=== PATIENT | female | born 1995 | race Hispanic/Latino ===

== ENCOUNTER 2020-05-28 21:30 | Emergency (ER) | payer OTHER, SELFPAY ==
--- OUTSIDE RECORDS SUMMARY | 2020-05-28 21:34 | XMS REPORT | Continuity of Care Document ---
:1995 Author Organization [facility] t Address [address] [place] [address] Dr. Victor [address] [place] [id number] Care Team Providers Name Role Phone Unavailable Unavailable Unavailable Problems This patient has no known problems. Allergies, Adverse Reactions, Alerts This patient has no known allergies or adverse reactions. Medications This patient has no known medications. Procedures This patient has no known procedures. Results This patient has no known results.
[2020-05-28 22:31] LABS: Urine Blood NEGATIVE (NEG); Urine Glucose NEGATIVE (NEG); Urine Protein 1+ (NEG); Urine Specific Gravity 1.025 (1.005-1.030); Urine pH 6.5 (5.0-7.0)
[2020-05-28 22:47] LABS: Absolute Lymphocytes (CBC) 2.9 K/uL (0.7-4.9); Basophils % 0.3 % (0-1.3); Hematocrit 37.3 % (36.0-45.0); MPV 10.6 fL (7.6-11.3); RBC Red Blood Cell Count 4.04 M/uL (3.86-4.86)
[2020-05-28] MEDS ORDERED: ONDANSETRON 4 MG/2 ML VIAL ONE (23:06)
[2020-05-28] MEDS ORDERED: NA CHLORIDE 0.9% 1,000 ML ONE (23:06)
[2020-05-28 23:55] LABS: BUN Blood Urea Nitrogen 16 mg/dL (7-18); Bicarbonate 22 mmol/L (21-32); Glucose Level 84 mg/dL (74-106); HCG, Quantitative 59758 mIU/mL (1-3); Potassium 3.1 mmol/L (3.5-5.1); Sodium Level 140 mmol/L (136-145)
--- NOTE | 2020-05-29 00:24 | ER ---
Nurse's Notes [facility] Name: Susanna Bowman Age: 25 yrs Sex: Female : 1995 Arrival Date: 05/28/2020 Time: 21:33 Bed 20 Private MD: Diagnosis: related conditions, unspecified, first trimester;Vomiting;Vomiting of , unspecified;Constipation;Hypokalemia Presentation: 05/28 21:45 Chief complaint: Patient states: N/V and pelvic pain for 3 days, reports being 3.5 em months , denies vaginal bleeding or fever. Coronavirus screen: Client denies travel out of the [place] in the last 14 days. Ebola Screen: Patient negative for fever greater than or equal to 101.5 degrees Fahrenheit, and additional compatible Ebola Virus Disease symptoms Patient denies exposure to infectious person. Patient denies travel to an Ebola-affected area in the 21 days before illness onset. No symptoms or risks identified at this time. Initial Sepsis Screen: Does the patient meet any 2 criteria? No. Patient's initial sepsis screen is negative. Does the patient have a suspected source of infection? No. Patient's initial sepsis screen is negative. Risk Assessment: Do you want to hurt yourself or someone else? Patient reports no desire to harm self or others. Onset of symptoms was May 28, 2020. 21:45 Method Of Arrival: Ambulatory em 21:45 Acuity: LITA 3 em Triage Assessment: 22:41 General: Appears in no apparent distress. Behavior is calm, cooperative, appropriate ll2 for age. Pain: Denies pain. GI: Reports nausea. 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 - Social history:: Smoking status: Patient denies any tobacco usage or history of. Screenin:39 Abuse screen: Denies threats or abuse. Nutritional screening: No deficits noted. ll2 Tuberculosis screening: No symptoms or risk factors identified. Assessment: 22:42 General: Appears in no apparent distress. Behavior is calm, cooperative, appropriate ll2 for age. Pain: Denies pain. Neuro: Level of Consciousness is awake, alert, obeys commands, Oriented to person, place, time, situation. Cardiovascular: Patient's skin is warm and dry. Respiratory: Airway is patent Respiratory effort is even, unlabored, Respiratory pattern is regular, symmetrical. GI: Abdomen is round. : No signs and/or symptoms were reported regarding the genitourinary system. EENT: No signs and/or symptoms were reported regarding the EENT system. Derm: Skin is intact, is healthy with good turgor, Skin is dry, Skin is pink, warm \T\ dry. Musculoskeletal: Circulation, motion, and sensation intact. Range of motion: intact in all extremities. 23:30 Reassessment: FHT 167 notified ECP. zb 23:51 Reassessment: Patient and/or family updated on plan of care and expected duration. Pain ll2 level reassessed. Patient is alert, oriented x 3, equal unlabored respirations, skin warm/dry/pink. 05/29 00:57 Reassessment: Patient and/or family updated on plan of care and expected duration. Pain ll2 level reassessed. Patient is alert, oriented x 3, equal unlabored respirations, skin warm/dry/pink. Vital Signs: 05/28 21:45 BP 113 / 55; Pulse 78; Resp 18; Temp 98.4; Pulse Ox 100% on R/A; Weight 61.23 kg; em Height 5 ft. 0 in. (152.40 cm); Pain 4/10; 22:00 BP 103 / 75; Pulse 88; Resp 18; Pulse Ox 99% on R/A; ll2 23:00 BP 103 / 65; Pulse 77; Resp 18; Pulse Ox 99% on R/A; ll2 05/29 00:00 BP 104 / 72; Pulse 71; Resp 16; Pulse Ox 100% on R/A; ll2 05/28 21:45 Body Mass Index 26.37 (61.23 kg, 152.40 cm) em ED Course: 05/28 21:33 Patient arrived in ED. cf2 21:47 Triage completed. em 21:48 Arm band placed on. em 21:56 Pk Last MD is Attending Physician. [facility] 21:59 Urine collected: clean catch specimen, clear. em 22:37 Linscombe, Luzma, RN is Primary Nurse. ll2 22:39 Initial lab(s) drawn, by ma, sent to lab. Inserted saline lock: 20 gauge in right ll2 antecubital area, using aseptic technique. Blood collected. 22:40 Patient has correct armband on for positive identification. Placed in gown. Bed in low ll2 position. Call light in reach. Side rails up X 1. Pulse ox on. NIBP on. 23:51 Urine Dipstick--Ancillary (enter results) Sent. [facility] 05/29 00:24 Dharmesh Castillo MD is Referral Physician. [facility] 01:02 No provider procedures requiring assistance completed. IV discontinued, intact, ll2 bleeding controlled, No redness/swelling at site. Pressure dressing applied. Administered Medications: 05/28 22:37 Drug: NS 0.9% 1000 ml Route: IV; Rate: 1 bolus; Site: right antecubital; [facility] 05/29 00:00 Follow up: IV Status: Completed infusion; IV Intake: 1000ml 05/28 22:37 Drug: Zofran (Ondansetron) 4 mg Route: IVP; Site: right antecubital; [facility] 05/29 00:01 Follow up: Response: No adverse reaction 00:25 Drug: Potassium Effervescent Tablet 25 mEq Route: PO; 2 Intake: 00:00 IV: 1000ml; Total: 1000ml. sf Outcome: 00:24 Discharge ordered by . [facility] 01:01 Patient left the ED. 2 01:02 Discharged to home ambulatory. 2 01:02 Condition: stable 01:02 Discharge instructions given to patient, Instructed on discharge instructions, follow up and referral plans. medication usage, Demonstrated understanding of instructions, follow-up care, medications, Prescriptions given X 4. Signatures: Pk Last MD MD cha Munoz, Edgar, RN RN Augie Bledsoe 2 Luzma Adam, RN RN ll2 Sylwia Ureña RN RN zb Fitzpatrick, Steven, RN RN sf
--- NOTE | 2020-05-29 00:24 | EDPHYS ---
Physician Documentation [facility] Name: Susanna Bowman Age: 25 yrs Sex: Female : 1995 Arrival Date: 05/28/2020 Time: 21:33 Bed 20 Private MD: ED Physician Pk Last HPI: 05/28 22:16 This 25 yrs old Female presents to ER via Ambulatory with complaints of jarrod PREGANT 3 MONTHS, Nausea/Vomiting, Abdominal Cramping, Constipation. 22:16 The patient presents to the emergency department with nausea, vomiting, that is jarrod intermittent. Onset: The symptoms/episode began/occurred 3 day(s) ago. Possible causes: . The symptoms are aggravated by nothing. Associated signs and symptoms: The patient has no apparent associated signs or symptoms. The patient has not experienced similar symptoms in the past. 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 - Social history:: Smoking status: Patient denies any tobacco usage or history of. ROS: 22:17 Constitutional: Negative for fever, chills, and weight loss, Eyes: Negative for injury, jarrod pain, redness, and discharge, ENT: Negative for injury, pain, and discharge, Neck: Negative for injury, pain, and swelling, Cardiovascular: Negative for chest pain, palpitations, and edema, Respiratory: Negative for shortness of breath, cough, wheezing, and pleuritic chest pain, Back: Negative for injury and pain, : Negative for injury, bleeding, discharge, and swelling, MS/Extremity: Negative for injury and deformity, Skin: Negative for injury, rash, and discoloration, Neuro: Negative for headache, weakness, numbness, tingling, and seizure, Psych: Negative for depression, anxiety, suicide ideation, homicidal ideation, and hallucinations, Allergy/Immunology: Negative for hives, rash, and allergies, Endocrine: Negative for neck swelling, polydipsia, polyuria, polyphagia, and marked weight changes, Hematologic/Lymphatic: Negative for swollen nodes, abnormal bleeding, and unusual bruising. 22:17 Abdomen/GI: Positive for abdominal pain, nausea and vomiting. Exam: 22:17 Constitutional: This is a well developed, well nourished patient who is awake, alert, jarrod and in no acute distress. Head/Face: Normocephalic, atraumatic. Eyes: Pupils equal round and reactive to light, extra-ocular motions intact. Lids and lashes normal. Conjunctiva and sclera are non-icteric and not injected. Cornea within normal limits. Periorbital areas with no swelling, redness, or edema. ENT: Nares patent. No nasal discharge, no septal abnormalities noted. Tympanic membranes are normal and external auditory canals are clear. Oropharynx with no redness, swelling, or masses, exudates, or evidence of obstruction, uvula midline. Mucous membranes moist. Neck: Trachea midline, no thyromegaly or masses palpated, and no cervical lymphadenopathy. Supple, full range of motion without nuchal rigidity, or vertebral point tenderness. No Meningismus. Chest/axilla: Normal chest wall appearance and motion. Nontender with no deformity. No lesions are appreciated. Cardiovascular: Regular rate and rhythm with a normal S1 and S2. No gallops, murmurs, or rubs. Normal PMI, no JVD. No pulse deficits. Respiratory: Lungs have equal breath sounds bilaterally, clear to auscultation and percussion. No rales, rhonchi or wheezes noted. No increased work of breathing, no retractions or nasal flaring. Back: No spinal tenderness. No costovertebral tenderness. Full range of motion. Skin: Warm, dry with normal turgor. Normal color with no rashes, no lesions, and no evidence of cellulitis. MS/ Extremity: Pulses equal, no cyanosis. Neurovascular intact. Full, normal range of motion. Neuro: Awake and alert, GCS 15, oriented to person, place, time, and situation. Cranial nerves II-XII grossly intact. Motor strength 5/5 in all extremities. Sensory grossly intact. Cerebellar exam normal. Normal gait. Psych: Awake, alert, with orientation to person, place and time. Behavior, mood, and affect are within normal limits. 22:17 Abdomen/GI: Inspection: distension, Bowel sounds: normal, Liver: no appreciated palpable abnormalities, Hernia: not appreciated. Vital Signs: 21:45 BP 113 / 55; Pulse 78; Resp 18; Temp 98.4; Pulse Ox 100% on R/A; Weight 61.23 kg; em Height 5 ft. 0 in. (152.40 cm); Pain 4/10; 22:00 BP 103 / 75; Pulse 88; Resp 18; Pulse Ox 99% on R/A; ll2 23:00 BP 103 / 65; Pulse 77; Resp 18; Pulse Ox 99% on R/A; ll2 05/29 00:00 BP 104 / 72; Pulse 71; Resp 16; Pulse Ox 100% on R/A; ll2 05/28 21:45 Body Mass Index 26.37 (61.23 kg, 152.40 cm) em MDM: 05/28 21:57 Patient medically screened. jarrod 22:19 Differential diagnosis: Nonspecific abd pain, viral gastroenteritis, gastroenteritis. [facility] Data reviewed: vital signs, nurses notes, lab test result(s). 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 Counseling: I had a detailed discussion with the patient and/or guardian regarding: the historical points, exam findings, and any diagnostic results supporting the discharge/admit diagnosis, the need for outpatient follow up, for definitive care, an OB/Gyne specialist. 05/28 21:58 Order name: Quantitative Hcg; Complete Time: 00:20 [facility] 05/28 21:58 Order name: Abo/rh Typing [facility] 05/28 21:58 Order name: Basic Metabolic Panel; Complete Time: 00:20 jarrod 05/28 21:58 Order name: CBC with Diff; Complete Time: 23:16 [facility] 05/28 22:01 Order name: Urine Dipstick--Ancillary (enter results) 05/28 22:01 Order name: Urine --Ancillary (enter results); Complete Time: 23:16 em 05/28 21:58 Order name: Urine Test (obtain specimen); Complete Time: 21:59 [facility] 05/28 21:58 Order name: IV Saline Lock; Complete Time: 22:38 [facility] 05/28 21:58 Order name: Labs collected and sent; Complete Time: 22:38 jarrod 05/28 21:58 Order name: NPO; Complete Time: 22:38 [facility] 05/28 22:02 Order name: Urine Dipstick-Ancillary; Complete Time: 23:16 [facility] 05/28 21:58 Order name: Urine Dipstick-Ancillary (obtain specimen); Complete Time: 21:59 [facility] 05/28 21:58 Order name: FHT's; Complete Time: 23:51 [facility] 05/29 00:22 Order name: FHT's: s/p 1 liter bolus; Complete Time: 00:56 [facility] Administered Medications: 22:37 Drug: NS 0.9% 1000 ml Route: IV; Rate: 1 bolus; Site: right antecubital; ll2 05/29 00:00 Follow up: IV Status: Completed infusion; IV Intake: 1000ml 05/28 22:37 Drug: Zofran (Ondansetron) 4 mg Route: IVP; Site: right antecubital; 2 05/29 00:01 Follow up: Response: No adverse reaction 00:25 Drug: Potassium Effervescent Tablet 25 mEq Route: PO; ll2 Disposition: 05/29/20 00:24 Discharged to Home. Impression: related conditions, unspecified, first trimester, Vomiting, Vomiting of , unspecified, Constipation, Hypokalemia. - Condition is Stable. - Discharge Instructions: Constipation, Adult, Hyperemesis Gravidarum, First Trimester of , [id number]-Wduz, First Trimester of , Pelvic Rest. - Prescriptions for Diclegis 10- 10 mg Oral tablet,delayed release (DR/EC) - take 1 tablet by ORAL route 3 times per day and 2 tablets at bedtime; 60 tablet. Vitamin 27- 0.8 mg Oral Tablet - take 1 tablet by ORAL route once daily; 30 tablet. Zofran 4 mg Oral Tablet - take 1 tablet by ORAL route every 12 hours As needed; 30 tablet. Miralax 17 gram/dose Oral - take 1 packet by ORAL route once daily dilute powder in 8 ounces of water or juice; 14 packet. - Medication Reconciliation Form, Thank You Letter, Antibiotic Education, Prescription Opioid Use form. - Follow up: Private Physician; When: 2 - 3 days; Reason: Recheck today's complaints, Continuance of care, Re-evaluation by your physician. Follow up: Dharmesh Castillo; When: 2 - 3 days; Reason: Recheck today's complaints, Re-evaluation by your physician. - Problem is new. - Symptoms have improved. Signatures: Dispatcher [employer] EDPk Joy MD MD cha Munoz, Edgar, RN RN em Luzma Adam RN RN ll2 Kofi Jorge RN sf Corrections: (The following items were deleted from the chart) 01:01 00:24 05/29/2020 00:24 Discharged to Home. Impression: related conditions, ll2 unspecified, first trimester; Vomiting; Vomiting of , unspecified; Constipation; Hypokalemia. Condition is Stable. Discharge Instructions: Hyperemesis Gravidarum, First Trimester of , [id number]-[id number], First Trimester of , Pelvic Rest, Constipation, Adult. Prescriptions for Diclegis 10-10 mg Oral tablet,delayed release (DR/EC) - take 1 tablet by ORAL route 3 times per day and 2 tablets at bedtime; 60 tablet, Vitamin 27-0.8 mg Oral Tablet - take 1 tablet by ORAL route once daily; 30 tablet, Zofran 4 mg Oral Tablet - take 1 tablet by ORAL route every 12 hours As needed; 30 tablet, Miralax 17 gram/dose Oral - take 1 packet by ORAL route once daily dilute powder in 8 ounces of water or juice; 14 packet. and Forms are Medication Reconciliation Form, Thank You Letter, Antibiotic Education, Prescription Opioid Use. Follow up: Private Physician; When: 2 - 3 days; Reason: Recheck today's complaints, Continuance of care, Re-evaluation by your physician. Follow up: Dharmesh Castillo; When: 2 - 3 days; Reason: Recheck today's complaints, Re-evaluation by your physician. Problem is new. Symptoms have improved. jarrod
[2020-05-29] MEDS ORDERED: POTASSIUM 25 MEQ EFFERV TAB ONE (01:10)
[2020-05-29 04:18] VITALS: TEMP 98.4
[2020-05-29 04:22] VITALS: BP 104/72; O2SAT 100
== END 2020-05-29 01:01 | disposition home or self-care (01) ==
LOC: ER 21:30
DX: O99.281 Endocrine, nutritional and metabolic diseases complicating pregnancy, first trimester (principal); E87.6 Hypokalemia; K59.00 Constipation, unspecified; Z3A.12 12 weeks gestation of pregnancy; Z88.0 Allergy status to penicillin; Z88.8 Allergy status to other drugs, medicaments and biological substances
CPT/HCPCS: 36415; 80048; 81003; 81025; 84702; 85025; 86900; 86901; 96361; 96374; 99284; J2405; J7030

== ENCOUNTER 2023-06-02 07:01 | Observation (INO) | payer BC ==
--- OUTSIDE RECORDS SUMMARY | 2023-06-02 07:04 | XMS REPORT | Continuity of Care Document ---
Author Name Unknown Address [address] [facility]. [address] [place] [address] [facility] thconnect Address [address] [facility] [address] [place] [address] Care Team Providers Care Supervisor Cook Room Name Role Phone Clyde Ardon Primary Care Physician Estrella Leal Attending Clinician U navailable GC_GCBZW_Kadiyala_S Attending Clinician Unavaila thais Doctor Unassigned, [place] Attending Clinician U navailable Missy HAN Attending Clinician Unavailable Missy Scott Attending Clinician [phone] Dev Mina MD Attending Clinician [phone] DEV MINA Attending Clinician Unavailable Gilbert Meehan Attending Clinician Unava ilNEIDA Ayoub Attending Clinician Unavailable Estrella Leal Admitting Clinician U navailable GLENN_GCBZW_Kadiyala_S Admitting Clinician UnavailGilbert Gomez Admitting Clinician Alice ilhugo Payers Payer Name Policy Type Policy Number Effective Date Expirati on Date Source [place]: [facility] [id number] 2022 00:00:00 Problems Condition Name Condition Details Condition Category Status Onset Date Resolution Date Last Treatment Date Treating Clinician Comments Source Depression Depression Disease Active 4-13 00:00: 00 [facility] Allergies, Adverse Reactions, Alerts Allergy Name Allergy Type Status Severity Reaction(s) Onset Date Inactive Date Treating Clinician Comments Source Penicill ins DA Active AL 2020-03 0-05 00:00: 00 [facility] Penicill ins DA Active AL HIVES 2020-03 0-05 00:00: 00 [facility] Penicill ins DA Active AL 9-08 00:00: 00 [facility] fospheny toin DA Active AL 9-08 00:00: 00 [facility] Penicill ins DA Active AL HIVES 9-08 00:00: 00 [facility] fospheny toin DA Active AL ITCHING 9-08 00:00: 00 [facility] Penicill ins DA Active AL HIVES 8-24 00:00: 00 [facility] fospheny toin DA Active AL ITCHING 8-24 00:00: 00 [facility] Penicill ins DA Active AL 0 8-24 00:00: 00 [facility] fospheny toin DA Active AL 0 8-24 00:00: 00 [facility] Fospheny toin Propensi ty to adverse reaction s Active Hives 0 2-07 00:00: 00 [facility] Penicill ins Propensi ty to adverse reaction s Active Rash 05-05 00:00: 00 [facility] FOSPHENY TOIN DRUG INGREDI Active Hives 0 2- 00:00: 00 [facility] PENICILL INS Drug Class Active Rash 05-05 00:00: 00 [facility] Social History Social Habit Start Date Stop Date Quantity Comments Source Gender identity [facility] Sexual orientation U [facility] Alcohol intake 2022-11-15 00:00:00 2022-11-15 00:00:00 0 /d [facility] History of Social function 2022-11-15 00:00:00 2022-11-15 00:00:00 [facility] History of tobacco use 2016-03-17 00:00:00 Cigarette Smoker [facility] Sex Assigned At 1995 00:00:00 1995 00:00:00 [facility] Smoking Status Start Date Stop Date Source Ex-smoker 2016-05-05 00:00:00 2016-05-05 00:00:00 [facility] Medications Ordered Medication Name Filled Medication Name Start Date Stop Date Current Medication? Ordering Clinician Indication Dosage Frequency Signature (SIG) Comments Components Source fluconazole 150 mg tablet 11-21 00:00: 00 11-22 04:59 :00 No [id number] 150mg Take 1 tablet by mouth once now for [address] [facility] fluconazole 150 mg tablet 11-21 00:00: 00 11-22 04:59 :00 No [id number] 150mg Take 1 tablet by mouth once now for [address] [facility] hydrOXYzine (ATARAX) tablet 25 mg 11-15 21:15: 00 11-15 21:32 :00 No 25mg 25 mg, Oral, ONCE, 1 dose, On 11/15/22 at 1615, ALIRIO [facility] hydrOXYzine 25 mg tablet 11-15 00:00: 00 Yes [id number] 25mg Take 1 tablet by mouth every 6 (six) hours as needed for Itching. [facility] hydrOXYzine 25 mg tablet 11-15 00:00: 00 Yes [id number] 25mg Take 1 tablet by mouth every 6 (six) hours as needed for Itching. [facility] fluconazole (DIFLUCAN) tablet 100 mg 11-14 05:30: 00 11-14 04:47 :00 No 100mg 100 mg, Oral, ONCE NOW, 1 dose, On Wed11/14/22 at 0030, ALIRIO
Re ason for Anti-Infec tive: Documented Infection< br>Documen lea Infection Site: Skin / Soft Tissue
Duration of Therapy: Other (see Comments) [facility] doxycycline hyclate (Vibramycin ) capsule 100 mg 11-14 04:45: 00 11-14 04:47 :00 No 100mg 100 mg, Oral, ONCE, 1 dose, On Wed11/13/22 at 2345, ALIRIO
Re ason for Anti-Infec tive: Documented Infection< br>Documen lea Infection Site: Skin / Soft Tissue
Duration of Therapy: Other (see Comments) [facility] doxycycline hyclate 100 mg capsule 11-14 00:00: 00 Yes [id number] 100mg Take 1 capsule by mouth in the morning and 1 capsule in the evening. [facility] ca acetate-alu m sulfate topical packet 11-14 00:00: 00 Yes [id number] 1{packe t} Apply 1 Packet to area(s) in the morning and 1 Packet at noon and 1 Packet in the evening. [facility] Terbinafine 1 % SprA 11-14 00:00: 00 Yes [id number] Apply to area(s) 4 (four) times daily. [facility] doxycycline hyclate 100 mg capsule 11-14 00:00: 00 Yes [id number] 100mg Take 1 capsule by mouth in the morning and 1 capsule in the evening. [facility] ca acetate-alu m sulfate topical packet 11-14 00:00: 00 Yes [id number] 1{packe t} Apply 1 Packet to area(s) in the morning and 1 Packet at noon and 1 Packet in the evening. [facility] Terbinafine 1 % SprA 11-14 00:00: 00 Yes [id number] Apply to area(s) 4 (four) times daily. [facility] doxycycline hyclate 100 mg capsule 11-14 00:00: 00 Yes [id number] 100mg Take 1 capsule by mouth in the morning and 1 capsule in the evening. [facility] ca acetate-alu m sulfate topical packet 11-14 00:00: 00 Yes [id number] 1{packe t} Apply 1 Packet to area(s) in the morning and 1 Packet at noon and 1 Packet in the evening. [facility] Terbinafine 1 % SprA 11-14 00:00: 00 Yes [id number] Apply to area(s) 4 (four) times daily. [facility] OXcarbazepi ne 300 mg tablet 07-13 00:00: 00 Yes 600mg Take 2 tablets by mouth 2 (two) times daily. [facility] OXcarbazepi ne 300 mg tablet 07-13 00:00: 00 Yes 900mg Take 3 tablets by mouth 2 (two) times daily. [facility] OXcarbazepi ne (TRILEPTAL) 600 mg tablet 07-13 00:00: 00 Yes 1200mg Take 2 tablets by mouth 2 (two) times daily. [facility] SERTraline 50 mg tablet 07-13 00:00: 00 Yes 50mg Take 1 tablet by mouth daily. [facility] OXcarbazepi ne 300 mg tablet 07-13 00:00: 00 Yes 600mg Take 2 tablets by mouth 2 (two) times daily. [facility] OXcarbazepi ne 300 mg tablet 07-13 00:00: 00 Yes 900mg Take 3 tablets by mouth 2 (two) times daily. [facility] OXcarbazepi ne (TRILEPTAL) 600 mg tablet 07-13 00:00: 00 Yes 1200mg Take 2 tablets by mouth 2 (two) times daily. [facility] SERTraline 50 mg tablet 07-13 00:00: 00 Yes 50mg Take 1 tablet by mouth daily. [facility] OXcarbazepi ne 300 mg tablet 07-13 00:00: 00 Yes 600mg Take 2 tablets by mouth 2 (two) times daily. [facility] OXcarbazepi ne 300 mg tablet 07-13 00:00: 00 Yes 900mg Take 3 tablets by mouth 2 (two) times daily. [facility] OXcarbazepi ne (TRILEPTAL) 600 mg tablet 07-13 00:00: 00 Yes 1200mg Take 2 tablets by mouth 2 (two) times daily. [facility] SERTraline 50 mg tablet 07-13 00:00: 00 Yes 50mg Take 1 tablet by mouth daily. [facility] Vital Signs Vital Name Observation Time Observation Value Comments S jose Systolic blood pressure 2022-11-15 20:46:00 129 mm[Hg] [facility] Diastolic blood pressure 2022-11-15 20:46:00 79 mm[Hg] [facility] Heart rate 2022-11-15 20:46:00 86 /min [facility] Body temperature 2022-11-15 20:46:00 37.39 Katarzyna [facility] Respiratory rate 2022-11-15 20:46:00 16 /min [facility] Oxygen saturation in Arterial blood by Pulse oximetry 2022-11-15 20:46:00 100 /min [facility] Body weight 2022-11-15 20:45:00 62.143 kg [facility] BMI 2022-11-15 20:45:00 25.89 kg/m2 [facility] Systolic blood pressure 2022-11-14 04:20:00 110 mm[Hg] [facility] Diastolic blood pressure 2022-11-14 04:20:00 76 mm[Hg] [facility] Heart rate 2022-11-14 04:20:00 74 /min [facility] Body temperature 2022-11-14 04:20:00 37.28 Katarzyna [facility] Respiratory rate 2022-11-14 04:20:00 15 /min [facility] Body height 2022-11-14 04:20:00 154.9 cm [facility] Body weight 2022-11-14 04:20:00 62.143 kg [facility] BMI 2022-11-14 04:20:00 25.89 kg/m2 [facility] Oxygen saturation in Arterial blood by Pulse oximetry 2022-11-14 04:20:00 100 /min [facility] Procedures Procedure Date / Time Performed Performing Clinicia n Source ASSIGNMENT OF BENEFITS 2022-11-15 21:51:49 Docto r Unassigned, [place] [facility] POCT GLUCOSE(AGE >30DAYS) 2022-11-15 21:32:00 Missy Han [facility] POCT GLUCOSE (AUTOMATED) 2022-11-15 21:30:00 Missy Han [facility] CONSENT/REFUSAL FOR DIAGNOSIS AND TREATMENT 2022-11-15 20:40:41 Doctor Unassigned, [place] [facility] POCT TEST 2022-11-14 04:46:00 Ibis Mina [facility] NOTICE OF PRIVACY PRACTICES 2022-11-14 04:15:31 Doctor Unassigned, [place] [facility] CONSENT/REFUSAL FOR DIAGNOSIS AND TREATMENT 2022-11-14 04:15:08 Doctor Unassigned, [place] [facility] [id number] 2020-12-04 00:00:00 [facility] [id number] 2020-12-04 00:00:00 [facility] [id number] 2020-12-04 00:00:00 [facility] Encounters Start Date/Time End Date/Time Encounter Type Admission Type Attending Clinicians Care Facility Care Department Encounter ID Source 2020-11-29 10:46:00 Inpatient SUSANNA Devi Estrella [facility] [id number] [facility] 2022-12-09 00:00:00 2022-12-09 00:00:00 Outpatient GC_GCBZW_Ka diyala_S [facility] [id number] [facility] 2022-12-08 00:00:00 2022-12-08 00:00:00 Outpatient GC_GCBZW_Ka diyala_S PRIV PRIV [id number] [facility] 2022-11-24 00:00:00 2022-11-24 00:00:00 Outpatient GC_GCBZW_Ka diyala_S PRIV PRIV [id number] [facility] 2022-11-16 00:00:00 2022-11-16 00:00:00 Patient Secure Msg Doctor Unassigned, [place] [facility] [id number] [facility] 2022-11-15 15:55:00 2022-11-15 17:12:00 Emergency X GUILLE Missy [facility] ERT [id number] [facility] 2022-11-15 15:55:00 2022-11-15 17:12:00 Emergency Guille, Missy Joana [facility] [id number] 4.2.7.2.[id number] [facility] 2022-11-13 23:35:00 2022-11-14 00:47:00 Emergency Dev Mina [facility] [id number] 4.2.7.2.[id number] [facility] 2022-11-13 23:35:00 2022-11-14 00:47:00 Emergency X DEV MINA [facility] ERT [id number] [facility] 2022-11-11 09:32:04 2022-11-11 09:32:04 Outpatient [facility] [id number] Dallin Amaro Dylan 2020-12-04 18:44:00 2020-12-06 11:18:00 Inpatient EM Gilbert Hawk [facility] OBPP [id number] [facility] 2020-12-04 09:26:00 2020-12-04 10:40:00 Emergency EM Estrella Leal [facility] [id number] [facility] 2020-05-07 14:00:00 2020-05-07 14:00:00 Outpatient NEIDA GILLIS [facility] [id number] [facility] 2020-05-07 14:00:00 2020-05-07 14:00:00 Outpatient R SIMONE NEIDA [facility] [id number] [facility] Results Test Description Test Time Test Comments Results Result Co mments Source [facility] GLUCOSE(AGE >30DAYS)2022-11-15 21:32:00* Test Item Value Reference Range Interpretation Comme nts POCT Glu (age>30days) (test code = 3342) 95 mg/dL 70-110 Lab Interpretation (test cod e = 94017-2) Normal [facility] [id number] 04:46:00* Test Item Value Reference Range Interpretation Comme nts POCT PREG (test code = 1605) Negative On board controls acceptable with C Line (test code = 3574) Yes POCT PREG LOT # (test code = 3575) [id number] Lab Interpretation (test cod e = 19211-8) [facility] [id number] 21:14:00* Test Item Value Reference Range Interpretation Comme nts AG HEPATITIS B SURFACE (test code = HBSAG) NONREACTIVE NONREACTIVE AB HEPATITIS C [id number] 21:14:00* Test Item Value Reference Range Interpretation Comme nts AB HEPATITIS C (test code = HCVAB) NONREACTIVE NONREACTIVE SIGNAL TO CUTOFF (test code = CUTOFF) 0.08 <0.80 N AB [id number] 21:14:00* Test Item Value Reference Range Interpretation Comme nts AB TREPONEMA (test code = TREPAB) NONREACTIVE NONREACTIVE AB HIV 1 21:14:00* Test Item Value Reference Range Interpretation Comme nts AB HIV 1 2 (test code = EXU94PW) NONREACTIVE NONREACTIVE Done by Siemens Centaur 4th Gen HIV Ag/Ab Combo Screen AG HEPATITIS B [id number] 20:50:00* Test Item Value Reference Range Interpretation Comme nts AG HEPATITIS B SURFACE (test code = HBSAG) NONREACTIVE NONREACTIVE AB HEPATITIS C [id number] 20:50:00* Test Item Value Reference Range Interpretation Comme nts AB HEPATITIS C (test code = HCVAB) NONREACTIVE SIGNAL TO CUTOFF (test code = CUTOFF) <0.80 AB [id number] 20:50:00* Test Item Value Reference Range Interpretation Comme nts AB TREPONEMA (test code = TREPAB) NONREACTIVE NONREACTIVE AB HIV 1 20:50:00* Test Item Value Reference Range Interpretation Comme nts AB HIV 1 2 (test code = ZLY36FP) NONREACTIVE COVID 19 Asymptomatic IH [id number] 20:12:00* Test Item Value Reference Range Interpretation Comme nts COVID 19 Asymptomatic IH AG (test code = COVNONPUIAG) NEGATIVE NEGATIVE This test has be en authorized only for the detection ofproteins from SARS-CoV-2, not for any other viruses orpathogens. Negative results should be treated as presumptive andconfirmed with a molecular assay, if necessary for patientmanagement. Negative results do not rule out COVID-19 andshould not be used as the sole basis for treatment orpatient management decisions, including infection controldecisions. Negative results should be considered in thecontext of a patient's recent exposures, history and thepresence of clinical signs and symptoms consistent withCOVID-19. This test has not been FDA cleared or approved; the test hasbeen authorized by FDA under an Emergency Use Authorization(EUA) for use by laboratories certified under the CLIA thatmeet the requirements to perform moderate, high or waivedcomplexity tests. This test is authorized for use at thePoint of Care (POC), i.e., in patient care settingsoperating under a CLIA Certificate of Waiver, Certificate ofCompliance, or Certificate of Accreditation. This test is only authorized for the duration of thedeclaration that circumstances exist justifying theauthorization of emergency use of in vitro diagnostic testsfor detection and/or diagnosis of COVID-19 under Hbmordx694(b)(1) of the Act, 21 U.S.C. 360bbb-3(b)(1), unless theauthorization is terminated or revoked sooner. Comments to Material Hauler: BO ECBC W/AUTO [id number] 19:28:00* Test Item Value Reference Range Interpretation Comme nts WHITE BLOOD CELL (test code = WBC) 15.6 K/mm3 6.5-12.3 H RED BLOOD CELL (test code = RBC) 3.50 M/mm3 3.51-4.69 L HEMOGLOBIN (test code = HGB) 11.1 g/dL 10.1-13.8 N HEMATOCRIT (test code = HCT) 33.6 % 32.5-41.8 N MEAN CELL VOLUME (test code = MCV) 96.0 fL 84.6-96.6 N MEAN CELL HGB (test code = MCH) 31.7 pg 27.3-33.9 N MEAN CELL HGB CONCETRATION ( test code = MCHC) 33.0 gm/dL 32.0-34.2 N RED CELL DISTRIBUTION WIDTH (test code = RDW) 15.0 % 12.2-16.3 N PLATELET COUNT (test code = PLT) 169 K/mm3 134-363 N MEAN PLATELET VOLUME (test c ode = MPV) 13.0 fL 9.2-12.7 H NEUTROPHIL % (test code = NT%) 70.4 % 57.9-77.3 N LYMPHOCYTE % (test code = LY%) 22.1 % 14.5-29.7 N MONOCYTE % (test code = MO%) 5.9 % 3.6-10.2 N EOSINOPHIL % (test code = EO%) 0.6 % 0.0-3.0 N BASOPHIL % (test code = BA%) 0.3 % 0.1-0.9 N NEUTROPHIL # (test code = NT#) 11.0 K/mm3 LYMPHOCYTE # (test code = LY#) 3.4 K/mm3 MONOCYTE # (test code = MO#) 0.9 K/mm3 EOSINOPHIL # (test code = EO#) 0.09 K/mm3 BASOPHIL # (test code = BA#) 0.0 K/mm3 RBC MORPHOLOGY REQUIRED (chio t code = RBCM) NORMAL NORMAL PLATELET MORPHOLOGY REQUIRED (test code = PLTMR) NORMAL NORMAL Notes Date/Time Note Provider Source 2022-11-15 16:52:03 vUnOoMYkR7JBKQrykAl+ Lm1gd6UaVXry kLSqj2A3yj4MA5gSbJpdFIoP9Oy5l4Im 9513-06-82G99:52:03 Pt given printed and verbal discharge instructions regarding dyshidrotic eczema and cellulitis of the right lower extremity, encouraged hydration.Prescriptions provided.Pt verbalized understanding of instructions, pt awake alert oriented, resp reg unlabored, skin w/d, color appropriate for race, moves all ext well, pt encouraged to follow up with clinical nurse reviewer.Advised to seek medical attention for new/prolonged/worsening of symptoms.Symptoms addressed.No adverse reaction to meds given in ER noted upon discharge.Pt leaving amb with steady gait, in no apparent distress. Left with . 21515-4Amxavtgpq department LbktLG6727-21-00J95:53:09[facility] department NoteTXT1.2.840.982992.1.13.104.2 .7.2.512868|[id number] e for patient [id number] ashley Ochoa RN[address] PrjtBkvgrgqvtGkuzenzbxSPQM058517 0617VRYQZGNPYTOQIATBTGYSKD9409-0 8-20T16:53:091.2.840.101180.1.72 .3.15|1.2.840.477544.1.13.104.2. 7.2.727879_[id number] Brenda Ochoa RN [facility] 2022-11-15 15:45:14 MbRNlT9Mv68ip2tDI47a V0WDG1JRKPQU EOU4+LtRFeHvh/yBZFLlCjHMn4Eds3jK 3068-13-56S88:45:14 Pt arrived via private car with c/o rash to the bottoms of her feet and palms of her hands. States she is currently on medications for the symptoms that are worsening. 88025-9Ddowfreaq department Triage qdxsES9578-81-50P88:46:37[facility] Triage noteTXT1.2.840.763130.1.13.104.2 .7.2.946624|[id number] e for patient wqea44726-0Xwwwjpwap department [id number] L Barker RN[address] 9504EMCTPQRNLQCMMBDQSVHVRH3554-4 5:46:371.2.840.196351.1.72 .3.15|1.2.840.687561.1.13.104.2. 7.2.727879_[id number] Nadine Stovall RN [facility] 2022-11-14 00:24:00 oZPimr3AhF4wcKqBuTQ+ x7Zeeutv45Oh PrMAInGx4ElMI375fbrrpCV32Ro32ScB 9750-21-59Q59:24:00 Pt discharged home. Given all education and information regarding s/s worsening condition ; prescriptions and follow up importance. Patient verbalized understanding. Alert and ambulatory to pov. 29876-4Rahtmphyg department RfhjYO2799-87-15X63:26:14[facility] NoteTXT1.2.840.150844.1.13.104.2 .7.2.063042|[id number] e for patient rpba05995-7WpecJX112493971Inthgy A Paul RN[address] 0499YQHHZANGDPCSWXQJJUTRER3257-9 00:26:141.2.840.755890.1.72 .3.15|1.2.840.517148.1.13.104.2. 7.2.727879_[id number] Alannaleidyalana Wilkinson RN [facility] 2022-11-13 23:20:00 1xP845bjqxvx6UqAVmKN ILd/Cdp0iZ3d 4/hNDyo94a2aBbT2lGILaBZ4KaS26kLi 1149-45-30H73:20:00 Patient states: "I have this itchy blister on my right plantar area for a month now and last week it popped out with like clear water but it's still so itchy so I have it seen by a doctor last Wednesday and I was told I have scabies. The prescribed medicines are not helping." 93998-2Evgshvbqn department Triage bxqoBL0699-00-61D14:34:16[facility] department Triage noteTXT1.2.840.396256.1.13.104.2 .7.2.466411|[id number] e for patient ejbr98402-7Fqsmkfzlz department KlpjLD732885495Hdfxmruy C Heredia RN[address] LopwQpiqpmzjbIsxhvnetdMJXJ651459 6160OZFHXQOZQLLDSRLRQTGFDG4997-0 3:34:161.2.840.231195.1.72 .3.15|1.2.840.961312.1.13.104.2. 7.2.727879_[id number] Jennie Tejeda RN [facility] 2022-11-13 23:15:00 N/gXjBmgukfdnyAwQPZP nNWg1LwqLwNo O1LJduuqDnc5NlWrPWC+TUD81t60M7ea 1036-65-24U94:15:00 Images from the original note were not included.[facility] Emergency Department NotePatient Name: Susanna Land of : 1995 27 year old femaleTreatment Room: [address]16Fzjceyc Record Number: [id number] Care Physician: PATIENT DOES NOT HAVE A PCPPatient Escorted by: Family [5]Mode of Arrival: Personal means [1]EMS Treatment Prior to ED Arrival: Travel and Exposure Screening:SymptomsDoes patient have any of these symptoms?: (not recorded)Exposure ScreeningHas patient had contact with someone with a communicable disease in the last month?: (not recorded)Diseases exposed to:: (not recorded)Is Patient ?: (not recorded)Exposure Date: (not recorded)Chief Complaint:Chief Complaint Patient presents with Skin Problem Right plantar History of Present Illness:Patient states: "I have this itchy blister on my right plantar area for a month now and last week it popped out with like clear water but it's still so itchy so I have it seen by a doctor last Wednesday and I was told I have scabies. The prescribed medicines are not helping."History provided by: PatientLanguage water tester used: No RashLocation: FootFoot rash location: R footQuality: painful, peeling and redness Pain details: Quality: Itching and burning Severity: No pain Onset quality: Gradual Duration: 1 month Timing: Constant Progression: UnchangedSeverity: MildOnset quality: GradualDuration: 1 monthTiming: ConstantProgression: UnchangedChronicity: NewRelieved by: NothingWorsened by: Heat and moisture (Steroid cream)Associated symptoms: no abdominal pain, no fatigue, no fever, no headaches, no joint pain, no myalgias, no nausea, no shortness of breath, no sore throat, not vomiting and not wheezing Associated symptoms comment: NonePast Medical History/Immunizations:Past Medical History: Diagnosis Date Anemia younger Anesthesia complication Neuor thinks this started her seizure disorder Asthma as a child Depression 07/09/2016 Seizures 2013 Dx Epileptic Allergies:Allergies Allergen Reactions Fosphenytoin Hives Penicillins Rash Past Social History:Tobacco Use Former; Cigarettes: Quit 03/17/2016 Alcohol Use No. Drug Use No. Sexual Activity Sexually active; Partners: Male. Past Surgical History:Past Surgical History: Procedure Laterality Date EGD (ENDO) Review of Systems: Review of Systems Constitutional: Negative for chills, diaphoresis, fatigue and fever. HENT: Negative for congestion, rhinorrhea, sore throat and trouble swallowing. Eyes: Negative for photophobia, pain, discharge and redness. Respiratory: Negative for cough, chest tightness, shortness of breath and wheezing. Cardiovascular: Negative for chest pain, palpitations and leg swelling. Gastrointestinal: Negative for abdominal distention, abdominal pain, blood in stool, constipation, nausea and vomiting. Genitourinary: Negative for dysuria, urgency, polyuria, frequency, hematuria and flank pain. Musculoskeletal: Negative for arthralgias, joint swelling, myalgias and neck stiffness. Skin: Positive for rash. Negative for color change and wound. Neurological: Negative for dizziness, seizures, syncope, facial asymmetry, weakness, light-headedness, numbness and headaches. Psychiatric/Behavioral: Negative for agitation, confusion, hallucinations and self-injury. The patient is not nervous/anxious. Hematological: Negative for adenopathy and cold intolerance. Does not bruise/bleed easily. Endocrine: Negative for cold intolerance, polydipsia and polyuria. Physical Exam: ED Triage Vitals [11/13/22 2320] Weight 62.1 kg (137 lb) Actual or estimated Estimated by patient/family report Height 1.549 m (5' 1") BP 110/76 Pulse 74 Resp 15 Temp 37.3 ?C (99.1 ?F) Temp source Oral SpO2 100 % Measured on Room air Physical ExamVitals and nursing note reviewed. Constitutional: General: She is not in acute distress. Appearance: She is well-developed. She is not diaphoretic. HENT: Head: Normocephalic and atraumatic. Right Ear: External ear normal. Left Ear: External ear normal. Nose: Nose normal. Mouth/Throat: Pharynx: No oropharyngeal exudate. Eyes: General: No scleral icterus. Right eye: No discharge. Left eye: No discharge. Conjunctiva/sclera: Conjunctivae normal. Pupils: Pupils are equal, round, and reactive to light. Neck: Thyroid: No thyromegaly. Vascular: No JVD. Trachea: No tracheal deviation. Cardiovascular: Rate and Rhythm: Normal rate and regular rhythm. Heart sounds: Normal heart sounds. No murmur heard. No friction rub. No gallop. Pulmonary: Effort: Pulmonary effort is normal. No respiratory distress. Breath sounds: Normal breath sounds. No stridor. No wheezing or rales. Chest: Chest wall: No tenderness. Abdominal: General: Bowel sounds are normal. There is no distension. Palpations: Abdomen is soft. There is no mass. Tenderness: There is no abdominal tenderness. There is no guarding or rebound. Musculoskeletal: General: No tenderness or deformity. Normal range of motion. Cervical back: Normal range of motion and neck supple. Feet:Feet: Left foot: Skin integrity: Skin breakdown, erythema and callus present. Toenail Condition: Left toenails are normal. Lymphadenopathy: Cervical: No cervical adenopathy. Skin: General: Skin is warm and dry. Coloration: Skin is not pale. Findings: No erythema or rash. Neurological: Mental Status: She is alert and oriented to person, place, and time. Cranial Nerves: No cranial nerve deficit. Motor: No abnormal muscle tone. Coordination: Coordination normal. Deep Tendon Reflexes: Reflexes are normal and symmetric. Reflexes normal. Psychiatric: Behavior: Behavior normal. Thought Content: Thought content normal. Judgment: Judgment normal. Radiology:No orders to display Lab Results:Lab Results POCT TEST - Normal Result Value Ref Range POCT PREG Negative On board controls acceptable with C Line Yes POCT PREG LOT # [id number] EKG:If EKG completed, see Procedure Note. Orders and Treatments:Orders Placed This Encounter Procedures POCT TEST Orders Placed This Encounter Medications fluconazole (DIFLUCAN) tablet 100 mg doxycycline hyclate (Vibramycin) capsule 100 mg First Provider Eval:ED Events Date/Time Event User Comments 11/13/222331 Medical Screening Begins DEV MINA MD -- 11/13/222331 First Provider Evaluation DEV MINA MD -- No notes of EC Admission Criteria type on file.ED COURSEPatient's condition improved with the treatment provided in the ED, will DC Home with adequate medications to treat her condition.Diagnosis/Impression as of 11/14/22 0015 Left foot infection Tinea pedis of right foot Impetigo Procedures: ProceduresMDM:Medical Decision MakingProblems Addressed:Impetigo: self-limited or minor problemLeft foot infection: self-limited or minor problemTinea pedis of right foot: chronic illness or injury with exacerbation, progression, or side effects of treatmentAmount and/or Complexity of Data ReviewedLabs: ordered.RiskOTC drugs.Prescription drug management. Flowsheet Documentation: Scoring Tools: No data recorded Disposition/Condition:ED Disposition None Discharge Medications:Patient's Medications START taking these medications No medications on file CONTINUE taking these medications which have NOT CHANGED OXCARBAZEPINE (TRILEPTAL) 600 MG TABLET Take 2 tablets by mouth 2 (two) times daily. OXCARBAZEPINE 300 MG TABLET Take 2 tablets by mouth 2 (two) times daily. OXCARBAZEPINE 300 MG TABLET Take 3 tablets by mouth 2 (two) times daily. SERTRALINE 50 MG TABLET Take 1 tablet by mouth daily. START taking Modified Medications as Prescribed No medications on file STOP taking these medications No medications on file Follow-up: 04439-5[facility] Emergency department JxmxTU6208-61-01A07:16:15Physici an Emergency department [id number] .[id number] e for patient hxhp21258-9Rzmplqalq department NoteLN[address] MexoTpaqqvmfdAljvhcyzkVTUZ251384 1063DOBRQBDDNTFVKIMPOPIGHM2774-2 8-19T00:16:151.2.840.395419.1.72 .3.15|1.2.840.700543.1.13.104.2. 7.2.727879_[id number] [facility] 2020-12-05 09:27:00 JMkkpqwdzqi93828370m 5DJ9/D2DMEe/ bKfIPcbMqZXhu8fkgMRpbFHX0n5jQk62 P5mqyc0TNwOilyi4w5u3338-60-50O07 :27:00 [facility])OB Disch PostpartumREPORT#:[id number] REPORT STATUS: SignedDATE:12/05/20 TIME: 926 PATIENT: SUSANNA BOWMAN UNIT #: [id number]#: [id number] [address] AGE: 25 SEX: F ATTEND: Gilbert Meehan [facility] AUTHOR: Annette Panda MD * ALL edits or amendments must be made on the electronic/computer document * Subjective SubjectiveAdmission EGA: Weeks: 40 Days: 5EGA at delivery (wks/days): 40 weeks (5 days)Status/day: post (day #1)Patient reports: Comments:Having cramping, Pitocin infusion still ongoing. Controlled with oral pain medications. Reports minimal bleeding. Tolerating regular diet, voiding freely. Baby doing well at bedside. Objective GeneralVS:Vital Signs Date Temp Pulse Resp B/P B/P Mean Pulse Ox FiO2 12/04-12/05 98.3-98.5 68-93 18-20 96-127/51-62 71.0-87.0 Last Documented: Result Date Time B/P 97/60 12/05 0840 Temp 98.5 12/05 0840 Pulse 83 12/05 0840 Resp 20 12/05 0840 B/P Mean 80.0 12/05 0020 PATIENT WEIGHT: Weight (lb): 150Weight (oz): Weight (kg): 68.039 Physical ExamLungs: unlabored breathingNeuro: Exam: alert, oriented x3, normal speechAbdomen: post gravid, soft, no abnormal tenderness, no guarding, no rebound tendernessIncision site: noneUterus: involution appropriate, non-tenderLower extremities: Edema: none Calf tenderness: negative Discharge Summary GeneralFree Text A P:25 yo s/p TSVD after admission in latent labor. 1. PPD#1: Meeting all milestones. Still cramping due to pitocin infusion, managed with po pain meds. Voiding freely, tolerating regular diet.2. Baby girl doing well at bedside3. Rh+, RI,, GBS neg4. PMH: iron def anemia (admit Hg 11.1); depression/anxiety; seizure d/o (last seizure 01/2019, not on med)5. PSH: Nexplanon removal Dispo: Continue routine care. Anticipate discharge tomorrow.Assessment: nml progressDate of admission:Date of admission: 12/04/20 Admission diagnosis: labor-spontaneous, labor-termHospital course: spontaneous labor, spontaneous vag delivery, nml postop/postpart careProcedures: spontaneous vaginal delivDischarge condition: stableDischarge to: Home/Self CareDischarge diagnosis: full-term uncomp deliveryDischarge management: less than 30 minsBaby A: Vaginal delivery: spontaneous status: live born Gender: female (Yecenia) 1 minute: 8 5 minutes: 9Plan: routine care, discharge tomorrowVaginal packing at delivery: No Discharge InstructionsInstructions: routine instr sheet givenDiet: RegularActivity: No [place] for 6 WksAdditional discharge routines: Attending Follow-UpContraception discussed: abstinence for 4-6 weeks, will discuss at PP visitDischarge meds:Continue taking these medications:PNV WITH CA/IRON/FA/DHA (PRENATE ESSENTIAL) 1 EACH CAP 1 CAPSULE ORAL DAILY. FERROUS FUMARATE/FA (HEMATINIC W/FOLIC ACID 324/1 MG) 1 TAB TAB 1 TABLET ORAL TWICE DAILY. Qty = 60 Start taking the following new medications:IBUPROFEN (MOTRIN) 600 MG TAB 600 MILLIGRAM ORAL EVERY 6 HOURS NEEDED. as needed for MILD PAIN (SCALE 1-3) Qty = 60 No Refills DOCUSATE SODIUM (COLACE) 100 MG CAP 200 MILLIGRAM ORAL BEDTIME. Qty = 30 No Refills Prescriptions: e-prescribe Add'l Follow-up AppointmentsAttending Physician: Attending Physician: Gilbert Meehan MD Attending physician follow up timeframe: In 5-6 weeks at 0936 RPT #:[id number] OF REPORT OBObstetric cvzn1613-58-08M32:27:00F.UHKW100 41169-1237DGNixuutjau for patient sejqGWYVESIIYJUBCB0386-90-34O00: 36:38 [facility] 2020-12-04 22:33:00 [id number] jWisV5pbZ/6V MfxJAwy02W5Y9DbzjExLCKRrBcSSxA+D XLHS2496mJCcj0ShQDK3130-17-38N92 :33:00 [facility])OB Delivery NoteREPORT#:[id number] REPORT STATUS: SignedDATE:12/04/20 TIME: 2232 PATIENT: SUSANNA BOWMAN UNIT #: [id number]#: [id number] [facility] AGE: 25 SEX: F ATTEND: Gilbert Meehan MDADM AUTHOR: Gilbert Meehan MD * ALL edits or amendments must be made on the electronic/computer document * OB Delivery Nursing Documentation ReviewNursing data:The data set between the solid lines has been imported from nursing documentation. Any exceptions have been noted below under Provider comments. ROM date: 12/04/20 ROM time: 2007Membranes rupture method: AROMAmniotic fluid color: ClearAmniotic fluid amount: Steroids prior to arrival: Antibiotic prophylaxis given: Post hemorrhage risk score: Low Risk for Hemorrhage. Delivery date A: Delivery time A: Birthweight (gm) A: Weight (lb) infant A: Weight (oz) infant A: Gender infant A: FemaleApgar 1 minute A: 5 minutes A: 10 minutes A: Cord pH obtained infant A: Vacuum time infant A: Vacuum # pulls A: Vacuum # popoffs infant A: QBL at delivery: Provider comments on imported nursing data: [] Pre-deliveryGBS status: GBS status: negativeNewborn evaluation at delivery: NRP certified personnelAdmission EGA: Weeks: 40 Days: 5EGA at delivery (wks/days): 40 weeks (5 days) Baby A InformationBaby A information Delivery date: 12/04/20 Delivery time: 2216 status: live born Wt of baby: not yet available Gender: female (Yecenia) 1 minute: 8 5 minutes: 9 Presentation: vertexABG details Baby A Cord blood gases: not collectedNuchal cord Baby A Nuchal cord: no Vaginal DeliveryVaginal delivery: Labor: spontaneous Vaginal delivery: spontaneous Amniotic fluid: clear Anesthesia type: epidural anesthesia Episiotomy: none Episiotomy repair: not applicable Laceration repair: no, not required Placenta: spontaneous, anomalies Post delivery meds used: oxytocin Count: correct Vaginal packing: No Mother's condition: mother stable 's condition: stable in roomLacerations: Perineal laceration(s): NoneAdditional comments:As the head crowned and delivered, the perineum was protected with blue towel. The anterior shoulder delivered with gentle downward traction and posterior shoulder with gentle upward traction. A nuchal cord was not noted. The was placed on mother's abdomen. The cord was clamped and cut after one minute. Placenta delivered spontaneously and intact. Hemostasis achieved with fundal massage and IV pitocin. No laceration was noted. Sponge, lap, and needle countscorrect x 2, lap scan negative. Good maternal-infant bonding noted. Blood Loss/DetailsBlood loss at delivery: <1000 mlCause of bleeding: uterine atony w/o hemorrManagement: uterotonic agent(s), fundal massageEBL at delivery (ml's): 100 at 2237 RPT #:[id number] OF REPORT OBObstetric lpuw7177-60-89V20:33:00F.CJAJ799 13291-8841LFEbjivonfn for patient hnknBPRGVTYPWLYGLO4290-03-27Y18: 37:43 [facility] 2020-12-04 19:13:00 [id number] iCqgd2v+dG1I SuPpg7jAWSU7D8MzHPAAV3N9yRA33pZ8 uwa0GxhYVjLUUkHSsg21127-44-49A84 :13:00 [facility] H PREPORT#:[id number] REPORT STATUS: SignedDATE:12/04/20 TIME: 1912 PATIENT: SUSANNA BOWMAN UNIT #: [id number]#: [id number] [facility] [birth year] AGE: 25 SEX: F ATTEND: Gilbert Meehan [facility] AUTHOR: Gilbert Meehan MD * ALL edits or amendments must be made on the electronic/computer document * OB HistoryChief complaint: uterine contractionsHPI:25 yo at 40w5d presented with contractions. Denies LOF, VB. Reports good FM. Was seen earlier this morning and was 3 cm dilated. Contractions now more painful. history: : 2 Term: 1 : 0 Abortus: 0 Living children: 1Current : Best EDC: 11/29/20 Admission EGA (weeks) 40 Admission EGA (days) 5Conditions of : anemia (iron deficiency)Labs: Blood type: A Rh: positive Rubella: immune Hepatitis B: negative HIV: negative STD: negative Syphilis: currently negative GBS: negative Past HistoryAlcohol Use Denies EtOH useDrug Use Denies recreational drugsSmoking status: Smoking status for patients 13 years old or older: Never SmokerMedications:Home Medications:PNV WITH CA/IRON/FA/DHA (PRENATE ESSENTIAL) 1 CAP PO DAILY FERROUS FUMARATE/FA (HEMATINIC W/FOLIC ACID 324/1 MG) 1 TAB PO BID Allergies:Coded Allergies:Penicillins (Mild, HIVES 12/04/20)fosphenytoin (From CEREBYX) (Mild, ITCHING 12/04/20) Free Text Hx NotesFree text Hx notes:PMH: Depression/anxity, Seizure d/c (01/2019, not on med)PSH: Nexplanon removalFH: HTN Review of SystemsGI:Reports: abdominal pain (Contractions). All systems rev neg: except as marked Objective GeneralVS:Last Documented: Result Date Time B/P Mean 75.0 / 1830 B/P 119/56 / 1830 Temp 98.4 /08 1830 Pulse 82 09/08 1830 Resp 20 / 1830 Vital Signs Date Temp Pulse Resp B/P B/P Mean Pulse Ox FiO2 / 98.4 82 18-20 119/56 75.0 PATIENT WEIGHT: Weight (lb): 150Weight (oz): Weight (kg): 68.064058 Physical ExamCardiac: regular rate and rhythmLungs: unlabored breathingNeuro: Exam: alert, oriented x3, normal speechAbdomen: gravid, soft, no abnormal tenderness, no guardingUterine activity: Monitor: toco Frequency (description): regular, irregular (q2-3)Pelvic exam: Pelvis clinically adequate: yesCervical/ exam: Dilatation (cm): 3 Effacement (%): 70 Est wt (gms): 3200 station: - 2 presentation: cephalic (at 1745 per RN)Membranes: Membranes: IntactLower extremities: Edema: noneBaby A: Baby A baseline: 135 bpm Baby A variability: moderate 6-25 bpm Baby A accelerations: 15 X 15 Baby A decelerations: none Baby A FHR category: category 1 Diagnosis, Assessment Plan Diagnosis, Assessment PlanFree Text A P:25 yo at 40w5d admitted for latent labor. 1. Latent labor: cervix was 3/60/-2 this morning and now 3/70/-2. Pt extremely uncomfortable with contractions and amira q 2-3 min. Pelvis clinically adequate. Admit for pitocin 2x2 and AROM when feasible.2. Cat 1 FHT3. Baby girl, EFW 3200 gm4. Rh+, RI,, GBS neg5. PMH: iron def anemia (admit Hg pending, was 9.7 in clinic, on iron supplement); depression/anxiety; seizure d/o (last seizure 01/2019, not on med)6. PSH: Nexplanon removal7. Epidural prn pain Dispo: admit for active management of latent labor. at 1923 RPT #:[id number] OF REPORT HPHistory and physical jinkccvjupq6430-24-91R81:13:00F. [id number] for patient mbxuHPXXMFEATLREWF0143-98-46X49: 24:05 [facility] 2020-12-04 19:13:00 [id number] mIOb/KzDwqvV ihWV8P7D0w5vjZE8JBTTqm+YseG6Nglb NeT20Z5lW2WGvWz+8kk9432-60-90M74 :13:[address] [facility] / H PREPORT#:[id number] REPORT STATUS: SignedDATE:12/04/20 TIME: 1912 PATIENT: SUSANNA BOWMAN UNIT #: [id number]#: [id number] [facility] [birth year] AGE: 25 SEX: F ATTEND: Gilbert Meehan MDADM AUTHOR: Gilbert Meehan MD * ALL edits or amendments must be made on the electronic/computer document * See AddendumOB HistoryChief complaint: uterine contractionsHPI:25 yo at 40w5d presented with contractions. Denies LOF, VB. Reports good FM. Was seen earlier this morning and was 3 cm dilated. Contractions now more painful. history: : 2 Term: 1 : 0 Abortus: 0 Living children: 1Current : Best EDC: 11/29/20 Admission EGA (weeks) 40 Admission EGA (days) 5Conditions of : anemia (iron deficiency)Labs: Blood type: A Rh: positive Rubella: immune Hepatitis B: negative HIV: negative STD: negative Syphilis: currently negative GBS: negative Past HistoryAlcohol Use Denies EtOH useDrug Use Denies recreational drugsSmoking status: Smoking status for patients 13 years old or older: Never SmokerMedications:Home Medications:PNV WITH CA/IRON/FA/DHA (PRENATE ESSENTIAL) 1 CAP PO DAILY FERROUS FUMARATE/FA (HEMATINIC W/FOLIC ACID 324/1 MG) 1 TAB PO BID Allergies:Coded Allergies:Penicillins (Mild, HIVES 12/04/20)fosphenytoin (From CEREBYX) (Mild, ITCHING 12/04/20) Free Text Hx NotesFree text Hx notes:PMH: Depression/anxity, Seizure d/c (01/2019, not on med)PSH: Nexplanon removalFH: HTN Review of SystemsGI:Reports: abdominal pain (Contractions). All systems rev neg: except as marked Objective GeneralVS:Last Documented: Result Date Time B/P Mean 75.0 09/08 1830 B/P 119/56 09/08 1830 Temp 98.4 09/08 1830 Pulse 82 09/08 1830 Resp 20 09/08 1830 Vital Signs Date Temp Pulse Resp B/P B/P Mean Pulse Ox FiO2 /08 98.4 82 18-20 119/56 75.0 PATIENT WEIGHT: Weight (lb): 150Weight (oz): Weight (kg): 68.618834 Physical ExamCardiac: regular rate and rhythmLungs: unlabored breathingNeuro: Exam: alert, oriented x3, normal speechAbdomen: gravid, soft, no abnormal tenderness, no guardingUterine activity: Monitor: toco Frequency (description): regular, irregular (q2-3)Pelvic exam: Pelvis clinically adequate: yesCervical/ exam: Dilatation (cm): 3 Effacement (%): 70 Est wt (gms): 3200 station: - 2 presentation: cephalic (at 1745 per RN)Membranes: Membranes: IntactLower extremities: Edema: noneBaby A: Baby A baseline: 135 bpm Baby A variability: moderate 6-25 bpm Baby A accelerations: 15 X 15 Baby A decelerations: none Baby A FHR category: category 1 Diagnosis, Assessment Plan Diagnosis, Assessment PlanFree Text A P:25 yo at 40w5d admitted for latent labor. 1. Latent labor: cervix was 3/60/-2 this morning and now 3/70/-2. Pt extremely uncomfortable with contractions and amira q 2-3 min. Pelvis clinically adequate. Admit for pitocin 2x2 and AROM when feasible.2. Cat 1 FHT3. Baby girl, EFW 3200 gm4. Rh+, RI,, GBS neg5. PMH: iron def anemia (admit Hg pending, was 9.7 in clinic, on iron supplement); depression/anxiety; seizure d/o (last seizure 01/2019, not on med)6. PSH: Nexplanon removal7. Epidural prn pain Dispo: admit for active management of latent labor. at 1923 Addendum 1: 12/04/202028 by Gilbert Meehan MD Pt comfortable after epiduralSVE: 6/90/-1, AROM with clear fluid noted at 2005Cat 1 FHTctx q 2 minRecheck in 2 hrs and if no cervical change or ctx's space out, will start pitocin 2x2. at 2030 RPT #:[id number] OF REPORT HPHistory and physical ugrdwfdxxag3778-49-45E90:13:00F. [id number] for patient ljttODKEIPKSASIWLR5874-43-05X75: 30:59 [facility]
[2023-06-02] MEDS ORDERED: ONDANSETRON 4 MG/2 ML VIAL ONE ×3 (07:38→12:29)
[2023-06-02] MEDS ORDERED: FAMOTIDINE 20 MG/2 ML VIAL IV ONE (07:38)
[2023-06-02 08:01] LABS: Absolute Eosinophils 0.2 K/uL (0-0.5); Absolute Lymphocytes (CBC) 2.3 K/uL (0.7-4.9); Absolute Monocytes 0.4 K/uL (0.1-1.3); Absolute Neutrophil 5.3 K/uL (1.8-8.0); Basophils % 0.5 % (0-1.3); Eosinophils % 2.9 % (0-4.4); Hematocrit 36.2 % (36.0-45.0); Hemoglobin 12.3 g/dL (12.0-15.0); Lymphocytes % 27.9 % (15.3-44.8); MCH 31.7 pg (27.0-35.0); MCHC 34.1 g/dL (32.0-36.0); MCV 92.9 fL (80-100); MPV 9.9 fL (7.6-11.3); Monocytes % 4.6 % (3.3-12.3); Neutrophils % 64.1 % (41.7-73.7); Platelets 223 thou/uL (152-406); RBC Red Blood Cell Count 3.89 M/uL (3.86-4.86); Red Cell Distribution Width 13.1 % (12.1-15.2)
[2023-06-02 08:07] LABS: Specific Gravity 1.026 (1.005-1.030)
--- NOTE | 2023-06-02 08:08 | RAD REPORT ---
EXAM DESCRIPTION: US - Abdomen Exam Limited - 06/02/2023 8:00 am CLINICAL HISTORY: ABD PAIN COMPARISON: CTSTONE PROTOCOL dated 12/06/2013 TECHNIQUE: Sonographic grayscale and color flow images of the right upper abdominal quadrant were o btained. FINDINGS: The gallbladder demonstrates numerous small shadowing gallstones. Some of these at the lev el of the neck are not discernibly mobile. Small volume of sludge. No pericholecystic fluid or gallbl adder wall thickening. The common bile duct is normal measuring 2 mm. The liver demonstrates no findings of intrahepatic biliary dilatation. IMPRESSION: Cholelithiasis, with some possibly adherent calculi at the level of the neck. No other acute findings.
[2023-06-02 08:15] LABS: Albumin 3.5 g/dL (3.4-5.0); Albumin/Globulin Ratio 0.9 (1.1-1.8); Anion Gap 8.5 mEq/L (5.0-15.0); Bilirubin Total 0.2 mg/dL (0.2-1.0); Globulin 3.7 g/dL (2.3-3.5); Potassium 3.5 mEq/L (3.5-5.1); Protein, Total 7.2 g/dL (6.4-8.2)
[2023-06-02 08:15] LABS: Specific Gravity 1.026 (1.005-1.030); Urine Bacteria <20 /HPF (<20); Urine Bilirubin NEGATIVE (Negative); Urine Blood Negative (Negative); Urine Clarity Turbid (Clear); Urine Color Light-Yellow (Yellow); Urine Glucose NEGATIVE (Negative); Urine Mucus Slight /HPF (None Seen); Urine Protein NEGATIVE (Negative); Urine RBC <5 /HPF (None Seen); Urine Urobilinogen Normal (Normal); Urine pH 6.5 (5.0-7.0)
--- NOTE | 2023-06-02 09:49 | ER ---
Nurse's Notes [facility] Name: Susanna Pabon Age: 28 yrs Sex: Female : 1995 Arrival Date: 06/02/2023 Time: 07:01 Bed 13 Private MD: Diagnosis: Other cholelithiasis without obstruction-symptomatic;Abdominal pain, unspecified Presentation: 06/01 07:17 Chief complaint: Patient states: RUQ PAIN x4 DAYS, H/O GALLSTONES. Coronavirus screen: bp At this time, the client does not indicate any symptoms associated with coronavirus-19. Ebola Screen: No symptoms or risks identified at this time. Initial Sepsis Screen: Does the patient meet any 2 criteria? No. Patient's initial sepsis screen is negative. Does the patient have a suspected source of infection? No. Patient's initial sepsis screen is negative. Risk Assessment: Do you want to hurt yourself or someone else? Patient reports no desire to harm self or others. Onset of symptoms is unknown. 07:17 Method Of Arrival: Ambulatory bp 07:17 Acuity: LITA 3 bp Triage Assessment: 07:19 General: Appears distressed, uncomfortable, Behavior is calm, cooperative, appropriate bp for age. Pain: Complains of pain in right upper quadrant. GI: Abdomen is non-distended. Historical: - Allergies: 07:19 Cerebyx; bp 07:19 PENICILLINS; bp - PMHx: 07:19 Seizures; bp - Immunization history:: Adult Immunizations up to date. - Social history:: Smoking status: Patient denies any tobacco usage or history of. Screenin:47 [facility] ED Fall Risk Assessment (Adult) History of falling in the last 3 months, db including since admission No falls in past 3 months (0 pts) Confusion or Disorientation No (0 pts) Intoxicated or Sedated No (0 pts) Impaired Gait No (0 pts) Mobility Assist Device Used No (0 pt) Altered Elimination No (0 pt) Score/Fall Risk Level 0 - 2 = Low Risk Oriented to surroundings, Maintained a safe environment. Abuse screen: Denies threats or abuse. Denies injuries from another. Nutritional screening: No deficits noted. Tuberculosis screening: No symptoms or risk factors identified. Assessment: 07:22 Reassessment: Patient appears in no apparent distress at this time. Patient and/or db family updated on plan of care and expected duration. Pain level reassessed. Patient is alert, oriented x 3, equal unlabored respirations, skin warm/dry/pink. General: Appears in no apparent distress. comfortable, Behavior is calm, cooperative. Neuro: Level of Consciousness is awake, alert, obeys commands, Oriented to person, place, time, situation. 07:28 Reassessment: PT TO ULTRASOUND. db 07:47 Reassessment: REPORTS PAIN IS WORSE IN THE MORNING. Respiratory: Airway is patent db Respiratory effort is even, unlabored, Respiratory pattern is regular, symmetrical. GI: Abdomen is flat, non-distended, Bowel sounds present X 4 quads. Abd is soft Reports upper abdominal pain. 09:13 Reassessment: NOTIFIED DR. PARIS PATIENT REPORTS VOMITING AND NAUSEA. ACTIVELY VOMITING db IN ROOM. NEW ORDER FOR NAUSEA RECEIVED SEE MAY. 09:32 Reassessment: Patient appears in no apparent distress at this time. Patient and/or db family updated on plan of care and expected duration. Pain level reassessed. Patient is alert, oriented x 3, equal unlabored respirations, skin warm/dry/pink. FAMIILY AT BEDSIDE. PT NOTIFIED IS NPO FOR SURGERY TODAY. 10:00 Reassessment: Patient appears in no apparent distress at this time. Patient and/or db family updated on plan of care and expected duration. Pain level reassessed. Patient is alert, oriented x 3, equal unlabored respirations, skin warm/dry/pink. 11:00 Reassessment: Patient appears in no apparent distress at this time. Patient and/or db family updated on plan of care and expected duration. Pain level reassessed. Patient is alert, oriented x 3, equal unlabored respirations, skin warm/dry/pink. 12:45 Reassessment: Patient appears in no apparent distress at this time. Patient and/or db family updated on plan of care and expected duration. Pain level reassessed. Patient is alert, oriented x 3, equal unlabored respirations, skin warm/dry/pink. PATIENT TO OR WITH RN. General: Appears in no apparent distress. comfortable. Vital Signs: 07:17 BP 119 / 77; Pulse 82; Resp 16; Temp 98.2; Pulse Ox 100% ; Weight 65.77 kg; Height 5 bp ft. 0 in. ; 07:47 BP 106 / 59; Pulse 64; Resp 16; Pulse Ox 99% on R/A; db 08:30 BP 108 / 79; Pulse 73; Resp 16; Pulse Ox 100% on R/A; db 09:00 BP 113 / 73; Pulse 70; Resp 16; Pulse Ox 100% on R/A; db 12:00 BP 98 / 63; Pulse 63; Resp 18; Pulse Ox 100% on R/A; db 07:17 Body Mass Index 28.32 (65.77 kg, 152.4 cm) bp ED Course: 07:03 Patient arrived in ED. mg5 07:05 Carlos Alberto Paris DO is Attending Physician. ms3 07:18 Erinn White, RN is Primary Nurse. db 07:19 Triage completed. bp 07:20 Arm band placed on. bp 07:25 Patient has correct armband on for positive identification. Bed in low position. Call db light in reach. Side rails up X 1. Pulse ox on. NIBP on. 07:50 Initial lab(s) drawn, by me, sent to lab. Urine collected: clean catch specimen, clear. db Inserted saline lock: 22 gauge in right antecubital area, using aseptic technique. Blood collected. 08:02 US Abdomen Limited In Process Unspecified. EDMS 09:42 Jt Sol MD is Hospitalizing Provider. ms3 12:45 Provided Education on: ADMISSION AND SURGERY. db 12:45 No provider procedures requiring assistance completed. Patient admitted, IV remains in db place. Administered Medications: 07:50 Drug: Ondansetron IVP 4 mg IVP once; over 2 minutes Route: IVP; Site: right antecubital;db 12:49 Follow up: Response: No adverse reaction db 07:51 Drug: Famotidine IVP 20 mg IVP once; dilute with 10 mL 0.9% NaCl; give over 2 minutes db Route: IVP; Site: right antecubital; 12:48 Follow up: Response: No adverse reaction db 09:28 Drug: Ondansetron IVP 4 mg IVP once; over 2 minutes Route: IVP; Site: right antecubital;db 12:48 Follow up: Response: No adverse reaction db Medication: 07:47 VIS not applicable for this client. db Outcome: 09:48 Decision to Hospitalize by Provider. ms3 12:45 Admitted to OR accompanied by nurse, via stretcher, db 12:45 Condition: stable 12:45 Instructed on the need for admit, 12:48 Patient left the ED. db Signatures: Dispatcher [employer] Dalton Melissa, RN RN Carlos Alberto Montalvo DO DO ms3 Erinn White RN RN Dorene Romo mg5
--- NOTE | 2023-06-02 09:49 | EDPHYS ---
Physician Documentation [facility] Name: Susanna Pabon Age: 28 yrs Sex: Female : 1995 Arrival Date: 06/02/2023 Time: 07:01 Bed 13 Private MD: ED Physician Carlos Alberto Aguila HPI: 06/01 09:02 This 28 yrs old Female presents to ER via Ambulatory with complaints of ms3 Abdominal Pain, Nausea. 09:02 48-year-old female with past medical history of epilepsy presents to the emergency ms3 department for right upper quadrant abdominal pain that radiates to the right shoulder pain that is been ongoing for years. Patient states the pain became worse over the last 4 days. Patient rates her pain a 10/10. Patient endorses nausea. Patient denies vomiting, fevers, chills.. Historical: - Allergies: 07:19 Cerebyx; bp 07:19 PENICILLINS; bp - PMHx: 07:19 Seizures; bp - Immunization history:: Adult Immunizations up to date. - Social history:: Smoking status: Patient denies any tobacco usage or history of. ROS: 09:02 Constitutional: Negative for fever, and chills. Neck: Negative for injury, pain, and ms3 swelling, Cardiovascular: Negative for chest pain, and palpitations. Respiratory: Negative for shortness of breath, cough, wheezing, and pleuritic chest pain, 09:02 MS/Extremity: Negative for injury and deformity, Skin: Negative for injury, rash, and discoloration, 09:02 Abdomen/GI: Positive for abdominal pain, nausea, Negative for vomiting, diarrhea, Exam: 09:02 Constitutional: This is a well developed, well nourished patient who is awake, alert, ms3 and in no acute distress. Head/Face: Normocephalic, atraumatic. Neck: Trachea midline, no cervical lymphadenopathy. Supple, full range of motion without nuchal rigidity, or vertebral point tenderness. No Meningismus. Cardiovascular: Regular rate and rhythm with a normal S1 and S2. No gallops, murmurs, or rubs. Normal PMI, no JVD. No pulse deficits. Respiratory: Lungs have equal breath sounds bilaterally, clear to auscultation and percussion. No rales, rhonchi or wheezes noted. No increased work of breathing, no retractions or nasal flaring. 09:02 Abdomen/GI: Inspection: abdomen appears normal, Bowel sounds: normal, Palpation: moderate abdominal tenderness, in the right upper quadrant, Vital Signs: 07:17 BP 119 / 77; Pulse 82; Resp 16; Temp 98.2; Pulse Ox 100% ; Weight 65.77 kg; Height 5 bp ft. 0 in. ; 07:47 BP 106 / 59; Pulse 64; Resp 16; Pulse Ox 99% on R/A; db 08:30 BP 108 / 79; Pulse 73; Resp 16; Pulse Ox 100% on R/A; db 09:00 BP 113 / 73; Pulse 70; Resp 16; Pulse Ox 100% on R/A; db 12:00 BP 98 / 63; Pulse 63; Resp 18; Pulse Ox 100% on R/A; db 07:17 Body Mass Index 28.32 (65.77 kg, 152.4 cm) bp MDM: 07:17 Patient medically screened. ms3 09:02 Differential diagnosis: Nonspecific abd pain, gastritis, cholecystitis, pancreatitis, ms3 gastroenteritis. 11:56 Data reviewed: vital signs, nurses notes, lab test result(s), radiologic studies, ms3 ultrasound, and as a result, I will discharge patient. Consideration of Admission/Observation Patient was admitted/placed on observation. Management of patient was discussed with the following: Dr. Sol. I considered the following discharge prescriptions or medication management in the emergency department Medications were administered in the Emergency Department. See MAR. Counseling: I had a detailed discussion with the patient and/or guardian regarding the historical points, exam findings, and any diagnostic results supporting the discharge/admit diagnosis, lab results, radiology results, the need for further work-up and treatment in the hospital. Response to treatment: the patient's symptoms have mildly improved after treatment, and as a result, I will admit patient. ED course: Case was discussed with Dr. Sol and patient to be made NPO. He will take patient to operating room later today. Discussed plans with patient and she understands and agrees with plan. All questions were answered. 06/01 07:26 Order name: CBC with Diff; Complete Time: 08:19 ms3 06/01 07:26 Order name: CMP; Complete Time: 08:19 ms3 06/01 07:26 Order name: Lipase; Complete Time: 08:19 ms3 06/01 07:26 Order name: Test, Urine; Complete Time: 08:19 ms3 06/01 07:26 Order name: Urinalysis w/ reflexes; Complete Time: 08:19 ms3 06/01 07:26 Order name: US Abdomen Limited; Complete Time: 08:19 ms3 06/01 07:26 Order name: IV Saline Lock; Complete Time: 07:56 ms3 06/01 07:26 Order name: Labs collected and sent; Complete Time: 07:56 ms3 Administered Medications: 07:50 Drug: Ondansetron IVP 4 mg IVP once; over 2 minutes Route: IVP; Site: right antecubital;db 12:49 Follow up: Response: No adverse reaction db 07:51 Drug: Famotidine IVP 20 mg IVP once; dilute with 10 mL 0.9% NaCl; give over 2 minutes db Route: IVP; Site: right antecubital; 12:48 Follow up: Response: No adverse reaction db 09:28 Drug: Ondansetron IVP 4 mg IVP once; over 2 minutes Route: IVP; Site: right antecubital;db 12:48 Follow up: Response: No adverse reaction db Disposition Summary: 06/02/23 09:48 Hospitalization Ordered Notes: Hospitalization Status: Observation ms3 Provider: Jt Sol ms3 Condition: Stable ms3 Problem: new ms3 Symptoms: are unchanged ms3 Bed/Room Type: Standard ms3 Location: [facility] ER HOLD(06/02/23 11:39) kb3 Room Assignment: ERHOLD-(06/02/23 11:39) kb3 Diagnosis - Other cholelithiasis without obstruction - symptomatic ms3 - Abdominal pain, unspecified ms3 Forms: - Medication Reconciliation Form ms3 - SBAR form ms3 - Leadership Thank You Letter ms3 Signatures: Dispatcher [employer] Dalton Melissa, RN RN Carlos Alberto Montalvo DO DO ms3 Kristy Robison RN RN kb3 Erinn White RN RN db Corrections: (The following items were deleted from the chart) 11:39 09:48 Telemetry/MedSurg (observation) ms3 kb3 11:39 09:48 ms3 kb3
[2023-06-02] MEDS ORDERED: ONDANSETRON 4 MG/2 ML VIAL IV PRN ×2 (09:50→14:41)
[2023-06-02] MEDS ORDERED: MORPHINE 2 MG/ML SYR IV PRN (09:50)
[2023-06-02] MEDS: NA CHLORIDE 0.9% 1,000 ML IV SCH (10:00)
[2023-06-02] MEDS ORDERED: MIDAZOLAM HCL 2 MG/2 ML INJ ONE (12:29)
[2023-06-02] MEDS ORDERED: LIDOCAINE 1% MPF 5 ML VIAL ONE (12:29)
[2023-06-02] MEDS ORDERED: propofoL 200 MG/20 ML VIAL IV ONE (12:29)
[2023-06-02] MEDS ORDERED: FENTANYL CITR 100 MCG/2 ML ONE (12:29)
[2023-06-02] MEDS ORDERED: KETOROLAC 30 MG/ML INJ ONE (12:29)
[2023-06-02] MEDS ORDERED: ROCURONIUM 50 MG/5 ML VIAL IV ONE (12:29)
[2023-06-02] MEDS: Ringers Lactate 1,000 ML IV ONE (12:35)
--- NOTE | 2023-06-02 12:52 | P.HP ---
Date of Service: 06/02/23 PC: This 28-year-old female presented to the emergency room with severe right upper quadrant abdominal pain for diagnosis and treatment. HPC: Patient has been having right upper quadrant abdominal pain off and on for the last couple years. Pain has intensified. This is the worst episode she ever had. Says it is almost equivalent to labor pain. Pain has eased up some since she has been in the ER. PSHx: 2 para 2 PMHx: History of procedure about 5 years ago was on medication but has been taken off. Social Hx: States she is allergic to penicillin Sys R: No cough, wheeze, shortness of breath. No chest pain or palpitations. O/E: Awake alert vital signs are stable HEENT: Within normal limits, not jaundiced Chest: Chest movement equal bilaterally Abd: Mild right upper quadrant tenderness [place]: Intact Data: Has documented stones on ultrasound, suggest possible impaction in the neck of the gallbladder Impression: Cholecystitis with cholelithiasis, biliary colic Plan: I will take to the operating room for laparoscopic possible open cholecystectomy with a cholangiogram. The risks of this procedure have been discussed. The possibility of bleeding, infection, injury to bile ducts blood vessels and intestines has been described. The possible need for an open and/or further surgeries and procedures was discussed. She understands and wishes to proceed.
[2023-06-02] MEDS ORDERED: GLYCOPYRROLATE 0.2 MG/ML SYR ONE (13:49)
[2023-06-02] MEDS ORDERED: NEOSTIGMINE 1 MG/ML -10 ML VIAL ONE (13:49)
--- NOTE | 2023-06-02 14:02 | P.OP ---
Preoperative diagnosis: Cholecystitis with cholelithiasis, biliary colic Postoperative diagnosis: The same Primary procedure: Laparoscopic cholecystectomy Secondary procedure: Cholangiogram with fluoroscopy Other procedure(s): Aaliyah block Anesthesia: General Estimated blood loss: Less than 10 Specimen: 1 gallbladder and contents Operative Technique: The patient brought the operating room placed supine on the table. After the induction of adequate general endotracheal anesthesia, t the area of the abdomen was prepped with a chlorhexidine solution, she was draped in the usual aseptic manner. A subumbilical incision was made. This is brought down through the skin and subcutaneous tissue. The Visiport was used to enter the peritoneal cavity and created pneumoperitoneum to approximately 12 mmHg. Under direct vision a 5 mm trocar was placed in the upper midline, 2 other 5 mm trocars on the right upper side of the abdomen. With the patient placed in reverse Trendelenburg and the table tilted to the left we could visualize the right upper quadrant. We could see a distended gallbladder in this area. A grasper was placed on the fundus, another down by Vazquez's pouch. Applying lateral traction we were able to expose the cystic duct and artery. After having removed the peritoneal coverings, the structures were plainly evident. A clip was placed between the gallbladder and the cystic duct. An opening was made into the cystic duct. We were now able to wedge our cholangiocatheter and there, it. She has quite secure valves in the cystic duct. This was demonstrated by obtaining a normal cholangiogram. There was good flow of contrast into the duodenum. No filling defects were noted. The catheter was removed. Clips were placed on the distal area of through the cholecystotomy. The cystic duct was now fully divided. The artery was clipped and divided in the usual manner. The gallbladder was then dissected free from the liver bed, placed into an Endo Catch, and brought out through the umbilical trocar site at this point the abdomen was inspected to ensure adequate hemostasis. A tap block was done with 0.25% Marcaine. The umbilical trocar defect was closed using the Endo Close and absorbable suture. At this point the pneumoperitoneum was collapsed, the sutures tied, and keegan were applied to the skin. At the end of the procedure she was in a stable condition was sent to the recovery room. Needle sponge instrument count were correct. Transferred to: Recovery Room Condition: Good
[2023-06-02] MEDS: MORPHINE 4 MG/ML SYR ONE ×2 (14:15→14:54)
[2023-06-02] MEDS: ONDANSETRON 4 MG/2 ML VIAL ONE (14:15)
[2023-06-02] MEDS: MEPERIDINE HCL 25 MG/ML SYR ONE (14:22)
[2023-06-02 14:40] VITALS: O2SAT 100
--- NOTE | 2023-06-02 15:23 | RAD REPORT ---
EXAM DESCRIPTION: RADCholangiogram Oper-Xray Or06/02/2023 2:15 pm CLINICAL HISTORY: Abdominal pain FINDINGS: The examination was performed by Dr. Sol. The cystic duct was cannulated and contrast administered. Contrast flowed into the duodenum. The biliary tree is normal caliber without a filling defect seen. One fluoroscopic spot image obtained. Fluoroscopy time 0.1 minute
[2023-06-02 16:20] VITALS: BMI 28.3
[2023-06-02] MEDS: NA CHLORIDE 0.9% 500 ML IV ONE (19:06)
[2023-06-02] MEDS: MORPHINE 2 MG/ML SYR IV PRN (19:07)
[2023-06-03] MEDS: HYDROCODONE/APAP 7.5/325 MG TAB PO PRN (03:21)
[2023-06-03 05:15] VITALS: TEMP 98.2
[2023-06-03 09:11] VITALS: BP 104/69
--- NOTE | 2023-06-03 09:49 | P.DS ---
Admission Date: 06/02/23 Discharge Date: 06/03/23 Disposition: ROUTINE DISCHARGE Discharge Condition: GOOD Brief History of Present Illness: 28-year-old female presented to the emergency room with severe right upper quadrant abdominal pain for diagnosis and treatment. Surgery was consulted for acute cystitis with cholelithiasis, biliary colic. She is status post acute laparoscopic cholecystectomy by Dr. Sol. Hospital Course: 28 year-old female patient presented with abdominal pain. Was noted to have acute cholecystitis. Surgery was consulted Dr. Sol. Condition improved with laparoscopic cholecystectomy. Instructed no heavy lifting greater than 10 pounds, patient tolerating diet, stable for discharge to home with follow-up appointment with primary care physician, follow-up with surgery after discharge PROBLEM: Acute cholecystitis That is post laparoscopic cholecystectomy Continue home medicines as previously prescribed GOAL: Clear understanding of disease process INSTRUCTIONS: Physician Discharge Instructions: -Follow-up with PCP in 1 to 2 weeks -Please call Dr. Vazquez at [phone] if any questions regarding hospital stay -Please call nursing station at [phone] if any nursing or medication questions -Return to the emergency room if symptoms worsen Diet: ADA, low sodium Activity: Fall precautions Vital Signs/Physical Exam: Temp Pulse Resp BP Pulse Ox 98.2 F 64 16 104/69 99 06/03/23 08:00 06/03/23 08:00 06/03/23 08:00 06/03/23 08:00 06/03/23 08:00 General: Alert, In no apparent distress, Oriented x3 HEENT: Atraumatic, Normocephalic Neck: Supple, JVD not distended Respiratory: Clear to auscultation bilaterally, Normal air movement Cardiovascular: No edema, Normal pulses Capillary refill: <2 Seconds Gastrointestinal: Normal bowel sounds, Tenderness (Mild postoperative abdominal tenderness) Musculoskeletal: No clubbing, No swelling Integumentary: No rashes, No breakdown Neurological: Normal speech, Normal strength at 5/5 x4 extr Laboratory Data at Discharge: WBC 8.20 thou/uL (4.3-10.9) 06/02/23 07:51 Hgb 12.3 g/dL (12.0-15.0) 06/02/23 07:51 Hct 36.2 % (36.0-45.0) 06/02/23 07:51 Plt Count 223 thou/uL (152-406) 06/02/23 07:51 Sodium 140 mEq/L (136-145) 06/02/23 07:51 Potassium 3.5 mEq/L (3.5-5.1) 06/02/23 07:51 BUN 19 mg/dL (7-18) H 06/02/23 07:51 Creatinine 0.61 mg/dL (0.55-1.02) 06/02/23 07:51 Glucose 111 mg/dL (74-106) H 06/02/23 07:51 Total Bilirubin 0.2 mg/dL (0.2-1.0) 06/02/23 07:51 AST 10 U/L (15-37) L 06/02/23 07:51 ALT 24 U/L (13-56) 06/02/23 07:51 Alkaline Phosphatase 59 U/L (45-117) 06/02/23 07:51 Lipase 58 U/L (13-75) 06/02/23 07:51 Home Medications: Cefdinir [Cefdinir*] 300 mg PO BID #10 cap 06/03/23 Hydrocodone 7.5/APAP 325 [[place] 7.5/325 mg*] 1 tab PO Q6H PRN #30 tab 06/03/23 New Medications: Cefdinir [Cefdinir*] 300 mg PO BID #10 cap Hydrocodone 7.5/APAP 325 [[place] 7.5/325 mg*] 1 tab PO Q6H PRN #30 tab PRN Reason: Pain Scale 5-7 (Moderate) Physician Discharge Instructions: 28 year-old female patient presented with abdominal pain. Was noted to have acute cholecystitis. Surgery was consulted Dr. Sol. Condition improved with laparoscopic cholecystectomy. Instructed no heavy lifting greater than 10 pounds, patient tolerating diet, stable for discharge to home with follow-up appointment with primary care physician, follow-up with surgery after discharge PROBLEM: Acute cholecystitis status-post laparoscopic cholecystectomy; Follow-up with Dr. Sol in 1 week to remove keegan Prescription provided by Dr. Sol as needed analgesics Driving on as needed analgesics Continue home medicines as previously prescribed GOAL: Clear understanding of disease process INSTRUCTIONS: Physician Discharge Instructions: -Follow-up with PCP in 1 to 2 weeks -Please call Dr. Vazquez at [phone] if any questions regarding hospital stay -Please call nursing station at [phone] if any nursing or medication questions -Return to the emergency room if symptoms worsen Diet: ADA, low sodium Activity: Fall precautions Diet: Regular Activity: No lifting more than 10 lbs Followup: Jt Sol MD [ACTIVE - CAN ADMIT] - NONE,NONE [Primary Care Provider] - Time spent managing pt's care (in minutes): 55
== END 2023-06-03 12:08 | disposition home or self-care (01) ==
LOC: ER 07:01 → ERHOLD 09:50 → 2ND 13:03
PROVIDERS: ADMIT Surgery; ATTEND Hospitalist
PROC: BF10YZZ Fluoroscopy of Bile Ducts using Other Contrast (ICD-10-PCS; 2023-06-02)
PROC: 0FT44ZZ Resection of Gallbladder, Percutaneous Endoscopic Approach (ICD-10-PCS; principal; 2023-06-02 13:00)
DX: K80.10 Calculus of gallbladder with chronic cholecystitis without obstruction (principal); Z88.0 Allergy status to penicillin
CPT/HCPCS: 85025; 81001; 36415; 81025; 88304; 83690; 80053; 74300; 76705; 94010; 47563; J2704; J2710; J2001; J2250; J3010; J2270; J2175; J2405 ×4; J7120; J7040; J7030 ×2; 96374; 96375; 99285; G0378

== ENCOUNTER → 2023-06-04 | Emergency (ER) | payer BC ==
[~2023-06-04] MED LIST: FAMOTIDINE 20 MG/2 ML VIAL IV ONE; KETOROLAC 30 MG/ML INJ ONE; MORPHINE 4 MG/ML SYR ONE; NA CHLORIDE 0.9% 0 ML ONE; NA CHLORIDE 0.9% 1,000 ML ONE; ONDANSETRON 4 MG/2 ML VIAL ONE
--- OUTSIDE RECORDS SUMMARY | 2023-06-04 23:11 | XMS REPORT | Continuity of Care Document ---
Author Name Unknown Address [address] [facility] [place] [address] [facility] thconnect Address [address] [facility] [address] [place] [address] Care Team Providers Care Pediatric Physical Therapist Name Role Phone Clyde Ardon Primary Care Physician Estrella Leal Attending Clinician U navailable GC_GCBZW_Kadiyala_S Attending Clinician Unavaila thais Doctor Unassigned, [place] Attending Clinician U navailable Missy HAN Attending Clinician Unavailable Missy Scott Attending Clinician [phone] Dev Mina MD Attending Clinician [phone] DEV MINA Attending Clinician Unavailable Gilbert Meehan Attending Clinician Unava ilNEIDA Ayoub Attending Clinician Unavailable Estrella Leal Admitting Clinician U navailable GLENN_GCBZW_Kadiyala_S Admitting Clinician UnavailGilbert Gomez Admitting Clinician Alice ilhugo Payers Payer Name Policy Type Policy Number Effective Date Expirati on Date Source [place]: [facility] [id number] 2022 00:00:00 Problems Condition Name Condition Details Condition Category Status Onset Date Resolution Date Last Treatment Date Treating Clinician Comments Source Depression Depression Disease Active 4-13 00:00: 00 [facility] Allergies, Adverse Reactions, Alerts Allergy Name Allergy Type Status Severity Reaction(s) Onset Date Inactive Date Treating Clinician Comments Source Penicill ins DA Active MT 2020-03 0-05 00:00: 00 [facility] Penicill ins DA Active MT HIVES 2020-03 0-05 00:00: 00 [facility] Penicill ins DA Active MT 9-08 00:00: 00 [facility] fospheny toin DA Active MT 9-08 00:00: 00 [facility] Penicill ins DA Active MT HIVES 9-08 00:00: 00 [facility] fospheny toin DA Active MT ITCHING 9-08 00:00: 00 [facility] Penicill ins DA Active MT HIVES 8-24 00:00: 00 [facility] fospheny toin DA Active MT ITCHING 8-24 00:00: 00 [facility] Penicill ins DA Active MT 0 8-24 00:00: 00 [facility] fospheny toin DA Active MT 0 8-24 00:00: 00 [facility] Fospheny toin Propensi ty to adverse reaction s Active Hives 0 2-07 00:00: 00 [facility] Penicill ins Propensi ty to adverse reaction s Active Rash 05-05 00:00: 00 [facility] FOSPHENY TOIN DRUG INGREDI Active Hives 0 2- 00:00: 00 [facility] PENICILL INS Drug Class Active Rash 05-05 00:00: 00 [facility] Social History Social Habit Start Date Stop Date Quantity Comments Source Gender identity [facility] Sexual orientation U [facility] Alcohol intake 2022-11-15 00:00:00 2022-11-15 00:00:00 0 /d [facility] History of Social function 2022-11-15 00:00:00 2022-11-15 00:00:00 [facility] History of tobacco use 2016-03-17 00:00:00 Cigarette Smoker [facility] Sex Assigned At 1995 00:00:00 1995 00:00:00 [facility] Smoking Status Start Date Stop Date Source Ex-smoker 2016-05-05 00:00:00 2016-05-05 00:00:00 [facility] Medications Ordered Medication Name Filled Medication Name Start Date Stop Date Current Medication? Ordering Clinician Indication Dosage Frequency Signature (SIG) Comments Components Source fluconazole 150 mg tablet 11-21 00:00: 00 11-22 04:59 :00 No [id number] 150mg Take 1 tablet by mouth once now for 1 dose. [facility] fluconazole 150 mg tablet 11-21 00:00: 00 11-22 04:59 :00 No [id number] 150mg Take 1 tablet by mouth once now for 1 dose. [facility] hydrOXYzine (ATARAX) tablet 25 mg 11-15 21:15: 00 11-15 21:32 :00 No 25mg 25 mg, Oral, ONCE, 1 dose, On 11/15/22 at 1615, ALIRIO [facility] hydrOXYzine 25 mg tablet 11-15 00:00: 00 Yes [id number] 25mg Take 1 tablet by mouth every 6 (six) hours as needed for Itching. [facility] hydrOXYzine 25 mg tablet 11-15 00:00: 00 Yes [id number] 25mg Take 1 tablet by mouth every 6 (six) hours as needed for Itching. [facility] fluconazole (DIFLUCAN) tablet 100 mg 11-14 05:30: 00 11-14 04:47 :00 No 100mg 100 mg, Oral, ONCE NOW, 1 dose, On Wed11/14/22 at 0030, ALIRIO
Re ason for Anti-Infec tive: Documented Infection< br>Documen lea Infection Site: Skin / Soft Tissue
Duration of Therapy: Other (see Comments) [facility] doxycycline hyclate (Vibramycin ) capsule 100 mg 11-14 04:45: 00 11-14 04:47 :00 No 100mg 100 mg, Oral, ONCE, 1 dose, On Wed11/13/22 at 2345, ALIRIO
Re ason for Anti-Infec tive: Documented Infection< br>Documen lea Infection Site: Skin / Soft Tissue
Duration of Therapy: Other (see Comments) [facility] doxycycline hyclate 100 mg capsule 11-14 00:00: 00 Yes [id number] 100mg Take 1 capsule by mouth in the morning and 1 capsule in the evening. [facility] ca acetate-alu m sulfate topical packet 11-14 00:00: 00 Yes [id number] 1{packe t} Apply 1 Packet to area(s) in the morning and 1 Packet at noon and 1 Packet in the evening. [facility] Terbinafine 1 % SprA 11-14 00:00: 00 Yes [id number] Apply to area(s) 4 (four) times daily. [facility] doxycycline hyclate 100 mg capsule 11-14 00:00: 00 Yes [id number] 100mg Take 1 capsule by mouth in the morning and 1 capsule in the evening. [facility] ca acetate-alu m sulfate topical packet 11-14 00:00: 00 Yes [id number] 1{packe t} Apply 1 Packet to area(s) in the morning and 1 Packet at noon and 1 Packet in the evening. [facility] Terbinafine 1 % SprA 11-14 00:00: 00 Yes [id number] Apply to area(s) 4 (four) times daily. [facility] doxycycline hyclate 100 mg capsule 11-14 00:00: 00 Yes [id number] 100mg Take 1 capsule by mouth in the morning and 1 capsule in the evening. [facility] ca acetate-alu m sulfate topical packet 11-14 00:00: 00 Yes [id number] 1{packe t} Apply 1 Packet to area(s) in the morning and 1 Packet at noon and 1 Packet in the evening. [facility] Terbinafine 1 % SprA 11-14 00:00: 00 Yes [id number] Apply to area(s) 4 (four) times daily. [facility] OXcarbazepi ne 300 mg tablet 07-13 00:00: 00 Yes 600mg Take 2 tablets by mouth 2 (two) times daily. [facility] OXcarbazepi ne 300 mg tablet 07-13 00:00: 00 Yes 900mg Take 3 tablets by mouth 2 (two) times daily. [facility] OXcarbazepi ne (TRILEPTAL) 600 mg tablet 07-13 00:00: 00 Yes 1200mg Take 2 tablets by mouth 2 (two) times daily. [facility] SERTraline 50 mg tablet 07-13 00:00: 00 Yes 50mg Take 1 tablet by mouth daily. [facility] OXcarbazepi ne 300 mg tablet 07-13 00:00: 00 Yes 600mg Take 2 tablets by mouth 2 (two) times daily. [facility] OXcarbazepi ne 300 mg tablet 07-13 00:00: 00 Yes 900mg Take 3 tablets by mouth 2 (two) times daily. [facility] OXcarbazepi ne (TRILEPTAL) 600 mg tablet 07-13 00:00: 00 Yes 1200mg Take 2 tablets by mouth 2 (two) times daily. [facility] SERTraline 50 mg tablet 07-13 00:00: 00 Yes 50mg Take 1 tablet by mouth daily. [facility] OXcarbazepi ne 300 mg tablet 07-13 00:00: 00 Yes 600mg Take 2 tablets by mouth 2 (two) times daily. [facility] OXcarbazepi ne 300 mg tablet 07-13 00:00: 00 Yes 900mg Take 3 tablets by mouth 2 (two) times daily. [facility] OXcarbazepi ne (TRILEPTAL) 600 mg tablet 07-13 00:00: 00 Yes 1200mg Take 2 tablets by mouth 2 (two) times daily. [facility] SERTraline 50 mg tablet 07-13 00:00: 00 Yes 50mg Take 1 tablet by mouth daily. [facility] Vital Signs Vital Name Observation Time Observation Value Comments S jose Systolic blood pressure 2022-11-15 20:46:00 129 mm[Hg] [facility] Diastolic blood pressure 2022-11-15 20:46:00 79 mm[Hg] [facility] Heart rate 2022-11-15 20:46:00 86 /min [facility] Body temperature 2022-11-15 20:46:00 37.39 Katarzyna [facility] Respiratory rate 2022-11-15 20:46:00 16 /min [facility] Oxygen saturation in Arterial blood by Pulse oximetry 2022-11-15 20:46:00 100 /min [facility] Body weight 2022-11-15 20:45:00 62.143 kg [facility] BMI 2022-11-15 20:45:00 25.89 kg/m2 [facility] Systolic blood pressure 2022-11-14 04:20:00 110 mm[Hg] [facility] Diastolic blood pressure 2022-11-14 04:20:00 76 mm[Hg] [facility] Heart rate 2022-11-14 04:20:00 74 /min [facility] Body temperature 2022-11-14 04:20:00 37.28 Katarzyna [facility] Respiratory rate 2022-11-14 04:20:00 15 /min [facility] Body height 2022-11-14 04:20:00 154.9 cm [facility] Body weight 2022-11-14 04:20:00 62.143 kg [facility] BMI 2022-11-14 04:20:00 25.89 kg/m2 [facility] Oxygen saturation in Arterial blood by Pulse oximetry 2022-11-14 04:20:00 100 /min [facility] Procedures Procedure Date / Time Performed Performing Clinicia n Source ASSIGNMENT OF BENEFITS 2022-11-15 21:51:49 Docto r Unassigned, [place] [facility] POCT GLUCOSE(AGE >30DAYS) 2022-11-15 21:32:00 Missy Han [facility] POCT GLUCOSE (AUTOMATED) 2022-11-15 21:30:00 Missy Han [facility] CONSENT/REFUSAL FOR DIAGNOSIS AND TREATMENT 2022-11-15 20:40:41 Doctor Unassigned, [place] [facility] POCT TEST 2022-11-14 04:46:00 Ibis Mina [facility] NOTICE OF PRIVACY PRACTICES 2022-11-14 04:15:31 Doctor Unassigned, [place] [facility] CONSENT/REFUSAL FOR DIAGNOSIS AND TREATMENT 2022-11-14 04:15:08 Doctor Unassigned, [place] [facility] [id number] 2020-12-04 00:00:00 [facility] [id number] 2020-12-04 00:00:00 [facility] [id number] 2020-12-04 00:00:00 [facility] Encounters Start Date/Time End Date/Time Encounter Type Admission Type Attending Clinicians Care Facility Care Department Encounter ID Source 2020-11-29 10:46:00 Inpatient SUSANNA Devi Estrella [facility] [id number] [facility] 2022-12-09 00:00:00 2022-12-09 00:00:00 Outpatient GC_GCBZW_Ka diyala_S [facility] [id number] [facility] 2022-12-08 00:00:00 2022-12-08 00:00:00 Outpatient GC_GCBZW_Ka diyala_S PRIV PRIV [id number] [facility] 2022-11-24 00:00:00 2022-11-24 00:00:00 Outpatient GC_GCBZW_Ka diyala_S PRIV PRIV [id number] [facility] 2022-11-16 00:00:00 2022-11-16 00:00:00 Patient Secure Msg Doctor Unassigned, [place] [facility] [id number] 350.1.13.10 4.2.7.2.686 [id number] [facility] 2022-11-15 15:55:00 2022-11-15 17:12:00 Emergency X GUILLE Missy [facility] ERT [id number] [facility] 2022-11-15 15:55:00 2022-11-15 17:12:00 Emergency Guille, Missy Joana [facility] [id number] 350.1.13.10 4.2.7.2.686 [id number] [facility] 2022-11-13 23:35:00 2022-11-14 00:47:00 Emergency Dev Mina [facility] [id number] 350.1.13.10 4.2.7.2.686 [id number] [facility] 2022-11-13 23:35:00 2022-11-14 00:47:00 Emergency X DEV MINA [facility] ERT [id number] [facility] 2022-11-11 09:32:04 2022-11-11 09:32:04 Outpatient [facility] [id number] Dallin Amaro Dylan 2020-12-04 18:44:00 2020-12-06 11:18:00 Inpatient EM Gilbert Hawk [facility] OBPP [id number] 2020-12-04 09:26:00 2020-12-04 10:40:00 Emergency EM Estrella Leal [facility] [id number] [facility] 2020-05-07 14:00:00 2020-05-07 14:00:00 Outpatient NEIDA GILLIS [facility] [id number] [facility] 2020-05-07 14:00:00 2020-05-07 14:00:00 Outpatient R SIMONE NEIDA [facility] [id number] [facility] Results Test Description Test Time Test Comments Results Result Co mments Source [facility] GLUCOSE(AGE >30DAYS)2022-11-15 21:32:00* Test Item Value Reference Range Interpretation Comme nts POCT Glu (age>30days) (test code = 3342) 95 mg/dL 70-110 Lab Interpretation (test cod e = 10210-1) Normal [facility] [id number] 04:46:00* Test Item Value Reference Range Interpretation Comme nts POCT PREG (test code = 1605) Negative On board controls acceptable with C Line (test code = 3574) Yes POCT PREG LOT # (test code = 3575) [id number] Lab Interpretation (test cod e = 94363-5) [facility] [id number] 21:14:00* Test Item Value Reference Range Interpretation Comme nts AG HEPATITIS B SURFACE (test code = HBSAG) NONREACTIVE NONREACTIVE AB HEPATITIS C [id number] 21:14:00* Test Item Value Reference Range Interpretation Comme nts AB HEPATITIS C (test code = HCVAB) NONREACTIVE NONREACTIVE SIGNAL TO CUTOFF (test code = CUTOFF) 0.08 <0.80 N AB [id number] 21:14:00* Test Item Value Reference Range Interpretation Comme nts AB TREPONEMA (test code = TREPAB) NONREACTIVE NONREACTIVE AB HIV 1 21:14:00* Test Item Value Reference Range Interpretation Comme nts AB HIV 1 2 (test code = SUW39XX) NONREACTIVE NONREACTIVE Done by [employer] Centaur 4th Gen HIV Ag/Ab Combo Screen AG HEPATITIS B [id number] 20:50:00* Test Item Value Reference Range Interpretation Comme nts AG HEPATITIS B SURFACE (test code = HBSAG) NONREACTIVE NONREACTIVE AB HEPATITIS C [id number] 20:50:00* Test Item Value Reference Range Interpretation Comme nts AB HEPATITIS C (test code = HCVAB) NONREACTIVE SIGNAL TO CUTOFF (test code = CUTOFF) <0.80 AB [id number] 20:50:00* Test Item Value Reference Range Interpretation Comme nts AB TREPONEMA (test code = TREPAB) NONREACTIVE NONREACTIVE AB HIV 1 20:50:00* Test Item Value Reference Range Interpretation Comme nts AB HIV 1 2 (test code = NMZ56ZK) NONREACTIVE COVID 19 Asymptomatic IH [id number] 20:12:00* Test Item Value Reference Range Interpretation [...] testsfor detection and/or diagnosis of COVID-19 under Yxwpgus054(b)(1) of the Act, 21 U.S.C. 360bbb-3(b)(1), unless theauthorization is terminated or revoked sooner. Comments to Dust Collector Operator: BO ECBC W/AUTO [id number] 19:28:00* Test Item Value Reference Range Interpretation [...] Notes Date/Time Note Provider Source 2022-11-15 16:52:03 lGmIkZHgW3DFKQrxaUg+ Bb8zs3VyQBab kOUfm9W4ct8BS8lSlOugYIqN2Nm7w5Vw 1955-80-81L87:52:03 Pt given printed and verbal discharge instructions regarding dyshidrotic eczema and cellulitis of the right lower extremity, encouraged hydration.Prescriptions provided.Pt verbalized understanding of instructions, pt awake alert oriented, resp reg unlabored, skin w/d, color appropriate for race, moves all ext well, pt encouraged to follow up with antique jewelry repairer.Advised to seek medical attention for new/prolonged/worsening of symptoms.Symptoms addressed.No adverse reaction to meds given in ER noted upon discharge.Pt leaving amb with steady gait, in no apparent distress. Left with . 18003-6Vwfkmufir department QcatHF5033-72-44P73:53:09[facility] department NoteTXT1.2.840.640440.1.13.104.2 .7.2.669399|[id number] e for patient fzmf45811-9YwwgQH933136255Dycjlh ashley Ochoa RN[address] YzguXnrikerogVujrunynxYBIJ749806 7058UGMNSPGWJLWIUQWLFPARFE8737-5 8-20T16:53:091.2.840.536947.1.72 .3.15|1.2.840.052407.1.13.104.2. 7.2.727879_[id number] Brenda Ochoa RN [facility] 2022-11-15 15:45:14 AoXNoP6Lg60ut2mZG01m W6EZZ2NAHFMQ EOU4+LtRFeHvh/eICVSiDsVRq6Rxh2uK 9059-24-90K33:45:14 Pt arrived via private car with c/o rash to the bottoms of her feet and palms of her hands. States she is currently on medications for the symptoms that are worsening. 85491-2Noohxhgyt department Triage eorgEM2631-40-66X05:46:37[facility] Triage noteTXT1.2.840.492011.1.13.104.2 .7.2.032891|[id number] e for patient mwqo29422-5Dcmohchgh department IugyIR981074182Ktqoc L Barker RN[address]TX[address] 1317VSYKIHPILLHTFSIKENNUIS8943-7 5:46:371.2.840.857943.1.72 .3.15|1.2.840.582864.1.13.104.2. 7.2.727879_[id number] Nadine Stovall RN [facility] 2022-11-14 00:24:00 oBHkku8OzW0tqJaCuGR+ d0Jmovev29Xj ZoTQWkMo4BaKQ752ejomyEK25Xq13QmC 2588-97-22Q36:24:00 Pt discharged home. Given all education and information regarding s/s worsening condition ; prescriptions and follow up importance. Patient verbalized understanding. Alert and ambulatory to pov. 79013-1Krntobgzn department NzmnHZ5112-17-40P47:26:14[facility] NoteTXT1.2.840.465179.1.13.104.2 .7.2.647236|[id number] e for patient qrwm16500-3WjpnQE965633680Weumih A Paul RN[address]TX[address] 8778ZBTNEOUNJPBEZORACXWLUK7087-8 00:26:141.2.840.714389.1.72 .3.15|1.2.840.305885.1.13.104.2. 7.2.727879_[id number] Alannaleidyalana Wilkinson RN [facility] 2022-11-13 23:20:00 4lQ703meuqpe9HfMShXX ILd/Fuc0kD8c 4/dQPsy73c4bHdU1iFDOhAK6ElE55fNz 8802-68-56A70:20:00 Patient states: "I have this itchy blister on my right plantar area for a month now and last week it popped out with like clear water but it's still so itchy so I have it seen by a doctor last Wednesday and I was told I have scabies. The prescribed medicines are not helping." 61185-5Ssvgjmuel department Triage ywgoDE9244-99-36A89:34:16[facility] department Triage noteTXT1.2.840.387574.1.13.104.2 .7.2.528564|[id number] e for patient ybsd20956-7Eaogepggf department HgunWI744872005Wbywnbuq C Heredia RN[address] MfqdGyzmtfogjEtlutnvxcMDOU324746 0245LBZQKXQIGBBGQXZGZGGSJS3496-1 3:34:161.2.840.314123.1.72 .3.15|1.2.840.693518.1.13.104.2. 7.2.727879_[id number] Jennie Tejeda RN [facility] 2022-11-13 23:15:00 N/gXjBmgukfdnyAwQPZP tBBr7YuyJgZv U0IWfozhKqk3BhSfCWC+HEU25r24Z1wq 6727-60-35E10:15:00 Images from the original note were not included.[facility] Emergency Department NotePatient Name: Susanna Land of : 1995 27 year old femaleTreatment Room: [address]ZG61-84Vgbujub Record Number: [id number] Care Physician: PATIENT DOES NOT HAVE A [...] medicines are not helping."History provided by: PatientLanguage senior ruby developer used: No RashLocation: FootFoot rash location: R [...] these medications No medications on file Follow-up: 75743-1Caooiwnol Emergency department CmglJD3130-70-01N79:16:15Physici an Emergency department NoteTXT1.2.840.588325.1.13.104.2 .7.2.184971|[id number] e for patient pygh59773-6Ssmooyenb department NoteLNUT[address] KlfzTvghflkhiIgbzpimfdSMDJ077647 0129IDCAIDPMSVTPQRVGBXTQNL9303-5 8-19T00:16:151.2.840.615773.1.72 .3.15|1.2.840.566725.1.13.104.2. 7.2.727879_[id number] [facility] 2020-12-05 09:27:00 AGfqvkjjzih14237785o 5DJ9/D2DMEe/ qCaQYmtBdCVpl7hzzTZwsJDJ6j7vYf94 J4wcqf6XYbBznzl9c8p3138-06-51Y84 :27:00 [facility]OB Disch PostpartumREPORT#:[id number] REPORT STATUS: SignedDATE:12/05/20 TIME: 926 PATIENT: SUSANNA BOWMAN UNIT #: [id number]#: [id number] [address] [birth year] AGE: 25 SEX: F ATTEND: Gilbert Meehan [facility] AUTHOR: Annette Panda MD * ALL edits [...] InstructionsInstructions: routine instr sheet givenDiet: RegularActivity: No Ferdinand for 6 WksAdditional discharge routines: Attending Follow-UpContraception [...] timeframe: In 5-6 weeks at 0936 RPT #:[id number] OF REPORT OBObstetric spik5924-37-52S69:27:00F.QUZE813 81635-5530RBAdlyzhhhi for patient wadbJJIMUOLTHOKIIU0790-70-94Y40: 36:38 [facility] 2020-12-04 22:33:00 XJcenkxfjzl61370554t sIlqU8leP/6V HgnPSpc36G8K2FvchDoGLENiYaQCxY+D EYYQ3805nBBwu0CqFJT0771-09-42S46 :33:00 [facility]OB Delivery NoteREPORT#:[id number] REPORT STATUS: SignedDATE:12/04/20 TIME: 2232 PATIENT: SUSANNA BOWMAN UNIT #: [id number]#: [id number] [facility] [birth year] [facility]GE[facility] 25 SEX: F ATTEND: Gilbert [...] at delivery (ml's): 100 at 2237 RPT #:[id number] OF REPORT OBObstetric bmoa9422-55-40S98:33:00F.MAWC423 00382-1017NQVhxmkweot for patient jxjyMYDJNWSHIRBUUQ9010-22-30T46: 37:43 [facility] 2020-12-04 19:13:00 HQzddyhozoz55053984X mNkzc0u+dG1I EyYjr4yRHUB5H2ZgQHVSC0D9lSO70hT2 pht7BkgGYaRNGsJMtl48594-63-12H19 :13:00 [facility] H PREPORT#:[id number] REPORT STATUS: SignedDATE:12/04/20 TIME: 1912 PATIENT: SUSANNA OBWMAN UNIT #: [id number]#: [id number] [facility] [birth year] AGE: 25 SEX: F ATTEND: Gilbert Meehan [facility] AUTHOR: Gilbert Meehan MD * ALL edits [...] WEIGHT: Weight (lb): 150Weight (oz): Weight (kg): 68.865564 Physical ExamCardiac: regular rate and rhythmLungs: unlabored [...] management of latent labor. at 1923 RPT #:[id number] OF REPORT HPHistory and physical invcztxcqzk3546-86-42V03:13:00F. NKXW62236865-8886MZRlwavxgya for patient sncgLLRPJRSMUTNUOD0124-99-46X14: 24:05 [facility] 2020-12-04 19:13:00 ZVpprmbijhy96986476f mIOb/KzDwqvV mmPR5W5Y6d9dhPH5LMYGwh+UxaQ8Mlfa LeC87O6bO2PGaDo+0dn4222-98-85Y51 :13:00 [facility] H PREPORT#:[id number] REPORT STATUS: SignedDATE:12/04/20 TIME: 1912 PATIENT: SUSANNA BOWMAN UNIT #: [id number]#: [id number] [facility] [birth year] AGE: 25 SEX: F ATTEND: Gilbert [...] WEIGHT: Weight (lb): 150Weight (oz): Weight (kg): 68.698577 Physical ExamCardiac: regular rate and rhythmLungs: unlabored [...] will start pitocin 2x2. at 2030 RPT #:[id number] OF REPORT HPHistory and physical hufvjqllkqx6056-76-83F54:13:00F. JHDB50985134-6848LIPprbnigbg for patient ldxrDFXCIAIDSXHIVH9513-13-83N19: 30:59 [facility]
[2023-06-05] LABS: Absolute Lymphocytes (CBC) 3.5 K/uL (0.7-4.9); Basophils % 0.2 % (0-1.3); Hematocrit 34.2 % (36.0-45.0); MCV 92.9 fL (80-100); MPV 10.2 fL (7.6-11.3); Platelets 202 thou/uL (152-406); RBC Red Blood Cell Count 3.68 M/uL (3.86-4.86)
[2023-06-05] LABS: Specific Gravity 1.018 (1.005-1.030)
[2023-06-05 00:05] LABS: Specific Gravity 1.017 (1.005-1.030); Urine Bacteria None Seen /HPF (<20); Urine Bilirubin NEGATIVE (Negative); Urine Blood Negative (Negative); Urine Clarity Clear (Clear); Urine Color Light-Yellow (Yellow); Urine Glucose NEGATIVE (Negative); Urine Protein NEGATIVE (Negative); Urine RBC <5 /HPF (None Seen); Urine Urobilinogen Normal (Normal); Urine pH 7.5 (5.0-7.0)
[2023-06-05 00:06] LABS: Urine Mucus Slight /HPF (None Seen); Urine WBC Clump Rare /HPF (None Seen)
[2023-06-05 00:11] LABS: Protime INR 1.13
[2023-06-05 00:18] LABS: Albumin 3.4 g/dL (3.4-5.0); Albumin/Globulin Ratio 0.9 (1.1-1.8); Anion Gap 9.5 mEq/L (5.0-15.0); Bilirubin Total 0.2 mg/dL (0.2-1.0); Potassium 3.5 mEq/L (3.5-5.1); Protein, Total 7.2 g/dL (6.4-8.2)
--- NOTE | 2023-06-05 00:55 | ER ---
Nurse's Notes [facility] Name: Susanna Pabon Age: 28 yrs Sex: Female : 1995 Arrival Date: 06/04/2023 Time: 23:08 Bed 7 Private MD: Diagnosis: Upper abdominal pain, unspecified;Postoperative abdominal pain, history of recent cholecystectomy postop day #2 Presentation: 06/03 23:17 Coronavirus screen: Vaccine status: Patient reports being unvaccinated. Ebola Screen: kd3 No symptoms or risks identified at this time. Initial Sepsis Screen: Does the patient meet any 2 criteria? No. Patient's initial sepsis screen is negative. Does the patient have a suspected source of infection? No. Patient's initial sepsis screen is negative. Risk Assessment: Do you want to hurt yourself or someone else? Patient reports no desire to harm self or others. Onset of symptoms was June 04, 2023. 23:17 Method Of Arrival: Ambulatory kd3 23:19 Chief complaint: Patient states: about 30 minutes ago, i was laying down and i tried to kd3 move my pillows to readjust and i started to feel some sudden discomfort in the back of my neck and shoulders. I moved a little more and the pain went from a 2 to a 10 and started to feel sharp. Then my stomach started to hurt as well. My neck feels still. I just had my gall bladder taken out 2 days ago. 23:19 Acuity: LITA 3 kd3 Triage Assessment: 23:18 General: Appears uncomfortable, Behavior is calm, cooperative. Pain: Complains of pain kd3 in left posterior aspect of neck Pain radiates to posterior aspect of left shoulder. Historical: - Allergies: 23:18 Cerebyx; kd3 23:18 PENICILLINS; kd3 - PMHx: 23:18 Seizures; kd3 - Immunization history:: Adult Immunizations up to date. - Social history:: Smoking status: Patient denies any tobacco usage or history of. - Family history:: not pertinent. Screenin/09 00:39 [facility] ED Fall Risk Assessment (Adult) History of falling in the last 3 months, km8 including since admission No falls in past 3 months (0 pts) Confusion or Disorientation No (0 pts) Intoxicated or Sedated No (0 pts) Impaired Gait No (0 pts) Mobility Assist Device Used No (0 pt) Altered Elimination No (0 pt) Score/Fall Risk Level 0 - 2 = Low Risk Oriented to surroundings, Maintained a safe environment, Educated pt \T\ family on fall prevention, incl call for assistance when getting out of bed, Assessed \T\ reinforced patient's understanding of fall precautions. Abuse screen: Denies threats or abuse. Denies injuries from another. Nutritional screening: No deficits noted. Tuberculosis screening: No symptoms or risk factors identified. Assessment: 00:38 General: Appears in no apparent distress. comfortable, Behavior is calm, cooperative, km8 appropriate for age. Pain: Denies pain. Neuro: Level of Consciousness is awake, alert, obeys commands, Oriented to person, place, time, situation. Cardiovascular: Denies chest pain, shortness of breath, Patient's skin is warm and dry. Respiratory: Airway is patent Respiratory effort is even, unlabored, Respiratory pattern is regular, symmetrical. GI: No signs and/or symptoms were reported involving the gastrointestinal system. Patient currently denies nausea. : No signs and/or symptoms were reported regarding the genitourinary system. EENT: No signs and/or symptoms were reported regarding the EENT system. Derm: No signs and/or symptoms reported regarding the dermatologic system. Skin is intact, is healthy with good turgor, Skin is dry, Skin is pink, warm \T\ dry. normal, Skin temperature is warm. Musculoskeletal: Range of motion: intact in all extremities, Denies states the medication helped with the pain. 01:11 Reassessment: Patient and/or family updated on plan of care and expected duration. Pain ha1 level reassessed. Patient is alert, oriented x 3, equal unlabored respirations, skin warm/dry/pink. Patient states feeling better. Patient states symptoms have improved. Vital Signs: 06/03 23:17 BP 124 / 78; Pulse 78; Resp 16; Temp 98.1(TE); Pulse Ox 100% ; Weight 65.77 kg; Height kd3 5 ft. 0 in. ; Pain 10; 06/04 00:30 BP 114 / 62; Pulse 73; Resp 16; Pulse Ox 99% on R/A; Pain 0/10; ha1 01:11 BP 107 / 64; Pulse 72; Resp 17 S; Temp 98.1; Pulse Ox 99% on R/A; ha1 06/03 23:17 Body Mass Index 28.32 (65.77 kg, 152.4 cm) kd3 06/03 23:17 Pain Scale: Adult kd3 06/04 00:30 Pain Scale: Adult ha1 [place] Coma Score: 00:39 Eye Response: spontaneous(4). Motor Response: obeys commands(6). Verbal Response: km8 oriented(5). Total: 15. ED Course: 06/03 23:11 Patient arrived in ED. rg4 23:17 Brian Bearden MD is Attending Physician. sp4 23:18 Arm band placed on right wrist. kd3 23:22 Triage completed. kd3 23:34 Radiology exam delayed due to IV insertion attempt and/or patient not having eh4 appropriate IV at this time. 23:51 Inserted saline lock: 22 gauge in left antecubital area, using aseptic technique. Blood lg3 collected. 23:52 CBC with Diff Sent. lg3 23:52 CMP Sent. lg3 23:52 Lipase Sent. lg3 06/04 00:26 Martha Miller, RN is Primary Nurse. km8 00:30 CT Abd/Pelvis - IV Contrast Only In Process Unspecified. EDMS 00:39 Patient has correct armband on for positive identification. Placed in gown. Bed in low km8 position. Call light in reach. Side rails up X 1. Pulse ox on. NIBP on. Door closed. Noise minimized. Lights dimmed. Warm blanket given. 00:39 Patient maintains SpO2 saturation greater than 95% on room air. km8 00:54 Jt Ceron MD is Referral Physician. sp4 01:12 Provided Education on: FOLLOWING UP WITH DR. CERON AND CLEAR LIQUID DIET. ha1 01:12 No provider procedures requiring assistance completed. IV discontinued, intact, ha1 bleeding controlled, No redness/swelling at site. Pressure dressing applied. Administered Medications: 00:04 Drug: NS 0.9% IV 1000 ml IV at 1 bolus Per protocol; 1000 mL bolus Route: IV; Rate: 1 lg3 bolus; Site: left antecubital; 01:13 Follow up: Response: No adverse reaction; IV Status: Completed infusion; IV Intake: ha1 1000ml 00:04 Drug: Famotidine IVP 20 mg IVP once; dilute with 10 mL 0.9% NaCl; give over 2 minutes lg3 Route: IVP; Site: left antecubital; 01:00 Follow up: Response: No adverse reaction; Marked relief of symptoms ha1 00:04 Drug: TORadol - Ketorolac IVP 15 mg IVP once Route: IVP; Site: left antecubital; lg3 00:30 Follow up: Response: No adverse reaction; Marked relief of symptoms; Pain is decreased ha1 00:04 Drug: Ondansetron IVP 4 mg IVP once; over 2 minutes Route: IVP; Site: left antecubital; lg3 01:00 Follow up: Response: No adverse reaction; Marked relief of symptoms ha1 00:04 Drug: morphine IVP or IV 4 mg IVP once over 4 mins Route: IVP; Infused Over: 4 mins; lg3 Site: left antecubital; 00:30 Follow up: Response: No adverse reaction; Marked relief of symptoms; Pain is decreased; ha1 RASS: Alert and Calm (0) Medication: 01:12 VIS not applicable for this client. ha1 Intake: 01:13 IV: 1000ml; Total: 1000ml. ha1 Outcome: 00:55 Discharge ordered by . sp4 01:12 Discharged to home ambulatory, ha1 01:12 Condition: stable 01:12 Discharge instructions given to patient, Instructed on discharge instructions, follow up and referral plans. Demonstrated understanding of instructions, follow-up care, 01:16 Patient left the ED. ha1 Signatures: Dispatcher [employer] EDMS Leida Patel 4 Luzma Anand RN RN 3 Caterina Zheng RN RN kd3 Chikis Crouch RN RN 1 Lorenzo Burden Brian Bashir MD MD sp4 Marx, Katie, RN RN km8 Corrections: (The following items were deleted from the chart) 06/03 23:22 23:19 Chief complaint: Patient states: about 30 minutes ago, i was laying down and i kd3 tried to move my pillows to readjust and i started to feel some sudden discomfort in the back of my neck and shoulders. I moved a little more and the pain went from a 2 to a 10 and started to feel sharp. Then my stomach started to hurt as well. My neck feels still. lady3 06/04 01:16 00:41 BP 114 / 62; Pulse 73bpm; Resp 16bpm; Pulse Ox 99% RA; Pain 0/10, Adult; km8 ha1
--- NOTE | 2023-06-05 00:55 | EDPHYS ---
Physician Documentation [facility] Name: Susanna Pabon Age: 28 yrs Sex: Female : 1995 Arrival Date: 06/04/2023 Time: 23:08 Bed 7 Private MD: ED Physician Brian Bearden HPI: 06/04 00:47 This 28 yrs old Female presents to ER via Ambulatory with complaints of sp4 Shoulder Pain, Neck and Upper Back Pain. 01:03 Patient is 28-year-old female presents with acute onset of epigastric pain sp4 with radiation into the back. Pain started 30 minutes prior to arrival. Pain is bothersome but without nausea or vomiting. No cholecystitis with history of laparoscopic cholecystectomy also cholangiogram with fluoroscopy on 06/02/2023. Normal cholangiogram was obtained good flow of contrast into the duodenum, no filling defects were noted.. Historical: - Allergies: 06/03 23:18 Cerebyx; kd3 23:18 PENICILLINS; kd3 - PMHx: 23:18 Seizures; kd3 - Immunization history:: Adult Immunizations up to date. - Social history:: Smoking status: Patient denies any tobacco usage or history of. - Family history:: not pertinent. ROS: 06/04 01:03 Constitutional: Negative for fever, chills, and weight loss, positive upper abdominal sp4 pain, positive epigastric pain with radiation to the back All other systems are negative, Exam: 01:03 Constitutional: This is a well developed, well nourished patient who is awake, alert, sp4 and in no acute distress. Head/Face: Normocephalic, atraumatic. Eyes: Pupils equal round and reactive to light, extra-ocular motions intact. Lids and lashes normal. Conjunctiva and sclera are not injected. Cornea within normal limits. Periorbital areas with no swelling, redness, or edema. ENT: Nares patent. No nasal discharge, no septal abnormalities noted. Tympanic membranes are normal and external auditory canals are clear. Oropharynx with no redness, swelling, or masses, exudates, or evidence of obstruction, uvula midline. Mucous membranes moist. Neck: Trachea midline, no thyromegaly or masses palpated, and no cervical lymphadenopathy. Supple, full range of motion without nuchal rigidity, or vertebral point tenderness. Chest/axilla: Normal chest wall appearance and motion. Nontender with no deformity. No lesions are appreciated. Cardiovascular: Regular rate and rhythm with a normal S1 and S2. No gallops, murmurs, or rubs. Normal PMI, no JVD. No pulse deficits. Respiratory: Lungs have equal breath sounds bilaterally, clear to auscultation and percussion. No rales, rhonchi or wheezes noted. No increased work of breathing, no retractions or nasal flaring. Abdomen/GI: Soft, with normal bowel sounds. No distension or tympany. No guarding or rebound, operative incisions x 4 that are clean dry and intact. Mild epigastric tenderness. Back: No spinal tenderness. No costovertebral tenderness. Skin: Warm, dry with normal turgor. Normal color with no rashes, no lesions, and no evidence of cellulitis. MS/ Extremity: Pulses equal, no cyanosis. Neurovascular intact. Full, normal range of motion. Neuro: Awake and alert, GCS 15, oriented to person, place, time, and situation. Cranial nerves II-XII grossly intact. Motor strength 5/5 in all extremities. Sensory grossly intact. Psych: Awake, alert, with orientation to person, place and time. Behavior, mood, and affect are within normal limits Vital Signs: 06/03 23:17 BP 124 / 78; Pulse 78; Resp 16; Temp 98.1(TE); Pulse Ox 100% ; Weight 65.77 kg; Height kd3 5 ft. 0 in. ; Pain 10/10; 06/04 00:30 BP 114 / 62; Pulse 73; Resp 16; Pulse Ox 99% on R/A; Pain 0/10; ha1 01:11 BP 107 / 64; Pulse 72; Resp 17 S; Temp 98.1; Pulse Ox 99% on R/A; ha1 06/03 23:17 Body Mass Index 28.32 (65.77 kg, 152.4 cm) kd3 06/03 23:17 Pain Scale: Adult kd3 06/04 00:30 Pain Scale: Adult ha1 [place] Coma Score: 00:39 Eye Response: spontaneous(4). Motor Response: obeys commands(6). Verbal Response: km8 oriented(5). Total: 15. MDM: 06/03 23:17 Patient medically screened. sp4 06/04 00:47 ED course: PROCEDURE: Abdomen Pelvis W Contrast CLINICAL HISTORY: 28 years Female sp4 Abdominal pain after cholecystectomy TECHNIQUE: Contiguous axial images obtained through the abdomen and pelvis following intravenous contrast administration. Coronal and sagittal reformatted images provided. This CT exam was performed according to our departmental dose-optimization program, which includes one or more of the following dose reduction techniques: automated exposure control, adjustment of the mA and/or kV according to patient size, and/or use of iterative reconstruction technique. COMPARISON: Preoperative ultrasound dated 06/02/2023. FINDINGS: Evidence of recent laparoscopic surgery with abdominal wall skin keegan. No abnormal fluid collection. Trace extraperitoneal and free intraperitoneal air. No abdominal ascites. Small amount of free fluid in the cul-de-sac. 4.4 cm right ovarian cyst does not require follow-up. Normal uterus and left ovary. Prior cholecystectomy without biliary dilatation. The lung bases, liver, pancreas, spleen, adrenal glands, kidneys, urinary bladder, and osseous structures are normal. Mild colonic constipation without bowel inflammation, obstruction, or pneumatosis. No acute osseous abnormality. IMPRESSION: Evidence of recent laparoscopic surgery with abdominal wall skin keegan. No abnormal fluid collection. Trace extraperitoneal and free intraperitoneal air. Small amount of free fluid in the cul-de-sac. Mild colonic constipation without bowel inflammation or obstruction. . 01:06 Differential diagnosis: Acute postoperative abdominal pain, pain associated with recent sp4 cholecystectomy, postoperative complications including biliary leak. Data reviewed: vital signs, nurses notes, old medical records, lab test result(s), radiologic studies, CT scan. Consideration of Admission/Observation Escalation of care including admission/observation considered. ED course: CT abdomen and pelvis has revealed recent laparoscopic surgery with abdominal and will scan samples please no abnormal fluid collection. Trace extraperitoneal and free intraperitoneal air. Small amount of free fluid in the cul-de-sac. Mild colonic constipation without bowel inflammation or obstruction. Patient is stable for discharge home with follow-up with Dr. Sol. Patient was advised to take her pain medicines prescribed by her surgeon. Also advised clear liquid diet. 06/03 23:17 Order name: Test, Urine; Complete Time: 00:47 sp4 06/03 23:17 Order name: Urinalysis W/Microscopic; Complete Time: 00:47 sp4 06/03 23:25 Order name: CBC with Diff; Complete Time: 00:47 sp4 06/03 23:25 Order name: CMP; Complete Time: 00:47 sp4 06/03 23:25 Order name: Lipase; Complete Time: 00:47 sp4 06/03 23:25 Order name: PT-INR; Complete Time: 00:47 sp4 06/03 23:25 Order name: CT Abd/Pelvis - IV Contrast Only sp4 06/03 23:25 Order name: IV Saline Lock; Complete Time: 23:52 sp4 06/03 23:25 Order name: Labs collected and sent; Complete Time: 23:52 sp4 Administered Medications: 00:04 Drug: NS 0.9% IV 1000 ml IV at 1 bolus Per protocol; 1000 mL bolus Route: IV; Rate: 1 lg3 bolus; Site: left antecubital; 01:13 Follow up: Response: No adverse reaction; IV Status: Completed infusion; IV Intake: ha1 1000ml 00:04 Drug: Famotidine IVP 20 mg IVP once; dilute with 10 mL 0.9% NaCl; give over 2 minutes lg3 Route: IVP; Site: left antecubital; 01:00 Follow up: Response: No adverse reaction; Marked relief of symptoms ha1 00:04 Drug: TORadol - Ketorolac IVP 15 mg IVP once Route: IVP; Site: left antecubital; lg3 00:30 Follow up: Response: No adverse reaction; Marked relief of symptoms; Pain is decreased ha1 00:04 Drug: Ondansetron IVP 4 mg IVP once; over 2 minutes Route: IVP; Site: left antecubital; lg3 01:00 Follow up: Response: No adverse reaction; Marked relief of symptoms ha1 00:04 Drug: morphine IVP or IV 4 mg IVP once over 4 mins Route: IVP; Infused Over: 4 mins; lg3 Site: left antecubital; 00:30 Follow up: Response: No adverse reaction; Marked relief of symptoms; Pain is decreased; ha1 RASS: Alert and Calm (0) Disposition Summary: 06/05/23 00:55 Discharge Ordered Notes: Location: Home sp4 Problem: new sp4 Symptoms: have improved sp4 Condition: Stable sp4 Diagnosis - Upper abdominal pain, unspecified sp4 - Postoperative abdominal pain, history of recent cholecystectomy postop day #2 sp4 Followup: sp4 - With: Jt Sol MD - When: 7 - 10 days - Reason: Recheck today's complaints Discharge Instructions: - Discharge Summary Sheet sp4 - Clear Liquid Diet, Adult, [id number] sp4 - Minimally Invasive Cholecystectomy, Care After, [id number] sp4 Forms: - Patient Portal Instructions sp4 Signatures: Dispatcher [employer] Luzma Dawkins RN RN lg3 Caterina Zheng RN RN kd3 Brian Bearden MD MD sp4 Chikis Crouch RN ha1
[2023-06-05 01:40] VITALS: BP 107/64; TEMP 98.1; O2SAT 99
--- NOTE | 2023-06-05 16:57 | RAD REPORT ---
EXAM DESCRIPTION: CT - Abdomen Pelvis W Contrast - 06/05/2023 6:11 am CLINICAL HISTORY: 28 years Female Abdominal pain after cholecystectomy TECHNIQUE: Contiguous axial images obtained through the abdomen and pelvis following intravenous con trast administration. Coronal and sagittal reformatted images provided. This CT exam was performed according to our departmental dose-optimization program, which includes on e or more of the following dose reduction techniques: automated exposure control, adjustment of the m A and/or kV according to patient size, and/or use of iterative reconstruction technique. COMPARISON: Preoperative ultrasound dated 06/02/2023. FINDINGS: Evidence of recent laparoscopic surgery with abdominal wall skin keegan. No abnormal flui d collection. Trace extraperitoneal and free intraperitoneal air. No abdominal ascites. Small amount of free fluid in the cul-de-sac. 4.4 cm right ovarian cyst does not require follow-up. N ormal uterus and left ovary. Prior cholecystectomy without biliary dilatation. The lung bases, liver, pancreas, spleen, adrenal glands, kidneys, urinary bladder, and osseous struct ures are normal. Mild colonic constipation without bowel inflammation, obstruction, or pneumatosis. No acute osseous a bnormality. IMPRESSION: Evidence of recent laparoscopic surgery with abdominal wall skin keegan. No abnormal fl uid collection. Trace extraperitoneal and free intraperitoneal air. Small amount of free fluid in the cul-de-sac. Mild colonic constipation without bowel inflammation or obstruction. Electronically signed by: Adriana Ross MD 06/05/2023 12:43 AM BAR SUPERVISOR Due to temporary technical issues with the PACS/Fluency reporting system, reports are being signed by the in house radiologists without review as a courtesy to insure prompt reporting. The interpreting radiologist is fully responsible for the content of the report.
== END ==
LOC: ER 23:08
DX: G89.18 Other acute postprocedural pain (principal); Z90.49 Acquired absence of other specified parts of digestive tract; Z88.0 Allergy status to penicillin; Z88.8 Allergy status to other drugs, medicaments and biological substances
CPT/HCPCS: 85025; 81001; 36415; 81025; 85610; 83690; 80053; 74177; Q9967; J2405; J7030; 96361; 96374; 96375; 99285